=== PATIENT | male | born 1955 | race Caucasian/White ===

== ENCOUNTER 2017-03-09 13:10 | Emergency (ER) | payer OTHER ==
[~2017-03-09] VITALS: Ht 177.8 cm; Wt 64.3 kg
[~2017-03-09 13:10] MED LIST: ACLI1AER2 IN; CYCL-36 PO; FLUT50I; MORP30TA PO; NAPR-576 PO; NORC10TA2 PO; PRAV10 PO; TAMS0.4C4 PO; WALKER ROLLING
[2017-03-09 13:16] VITALS: BP 148/73; PULSE 67; RESP 18; TEMP 97.9; O2SAT 99
[2017-03-09] MEDS ORDERED: PRAV10TA PO (13:33)
[2017-03-09] MEDS ORDERED: NAPR500T PO (13:33)
[2017-03-09] MEDS ORDERED: ACLI1AER2 INH (13:33)
[2017-03-09] MEDS ORDERED: VENTAER INH (13:33)
--- NOTE | 2017-03-09 13:44 | PD ---
HPI Chief Complaint: Complaint Time Seen by Provider: 13:22 Travel History International Travel<30 days: No Contact w/Intl Traveler<30days: No Traveled to known affect area: No History of Present Illness HPI This Is a 62-year-old male who has a history of bladder surgery in July of this year with Dr. Guillermo who presents to the emergency department today with several hours of bright red blood in his urine. He says he's had no pain with urination but at the end of his stream he started to pass a large amount of bright red blood and clots. This is been constant since it started, moderate severity with no associated lightheadedness or dizziness. He denies any fevers or chills. He says for about 9 days he's been having bilateral low back pain. He has a history of back surgery as well and thought it was more likely to be musculoskeletal. He denies any vomiting. He is not On any blood thinners. He has been taking naproxen for his back. He says he was taking Urobell for the symptoms associated with the surgery and he stopped 3 weeks ago because it was very expensive. PFSH Past Medical History Arthritis: Yes Blood Disorders: No Cancer: No Cardiovascular Problems: No High Cholesterol: Yes COPD: Yes Diabetes: No Diminished Hearing: No Endocrine: No Genitourinary: Yes (BPH) Hepatitis: No Hiatal Hernia: No Immune Disorder: No Medical other: Yes (CYST ON THYROID) Musculoskeletal: Yes (ARTHRITIS) Neurologic: No Psychiatric: Yes (ANXIETY/ DEPRESSION) Reproductive: No Respiratory: Yes (COPD) Immunizations Current: Yes Thyroid Disease: No Tetanus Vaccination: < 5 Years Influenza Vaccination: No Past Surgical History Abdominal Surgery: Yes (ANDREW INGUINAL HERNIA REPAIR) AICD: No Body Medical Devices: CERVICAL HARDWARE Genitourinary Surgery: Yes (VASECTOMY, URITHERAL SX) Joint Replacement: No Neurologic Surgery: Yes (CERVICAL FUSION) Pacemaker: No Tonsillectomy: Yes Other Surgery: Yes (NECK SURGERY) Social History Alcohol Use: Yes (SOCIALLY) Tobacco Use: Yes (1PPD) Substance Use: No Allergies-Medications (Allergen,Severity, Reaction): Coded Allergies: bupropion (Unverified Allergy, Severe, AGITATION, 03/09/17) lovastatin (Unverified Allergy, Intermediate, Rash, 03/09/17) 10/21/15 DENIES ALLERGY Reported Meds & Prescriptions Reported Meds & Active Scripts Active Reported Ventolin Hfa 18 GM Inh (Albuterol Sulfate) 90 Mcg/Act Aer 1 Puff INH Q4H PRN Tudorza Pressair Inh (Aclidinium Ama Inh) 400 Mcg/Act Aerp 1 Puff INH BID Naproxen 500 Mg Tab 500 Mg PO BID Pravastatin 10 Mg Tab 10 Mg PO DAILY Review of Systems Except as stated in HPI: all other systems reviewed are Neg Physical Exam Narrative GENERAL:Well appearing, no acute distress SKIN: Focused skin assessment warm and dry. HEAD: Atraumatic. Normocephalic. EYES: Pupils equal and round. No injection or drainage. ENT: Moist mucous membranes NECK: Trachea midline. CARDIOVASCULAR: Regular rate and rhythm. No murmur appreciated. RESPIRATORY: Clear to auscultation. Breath sounds equal bilaterally. GASTROINTESTINAL: Abdomen soft, non-tender, nondistended. MUSCULOSKELETAL: Tender to palpation in the lumbar paraspinal muscles NEUROLOGICAL: Awake and alert. No obvious cranial nerve deficits. Moving all extremities PSYCHIATRIC: Appropriate mood and affect; insight and judgment normal. Data Data Last Documented VS Vital Signs Date Time Temp Pulse Resp B/P (MAP) Pulse Ox O2 Delivery O2 Flow Rate FiO2 03/09/17 13:16 97.9 67 18 148/73 (98) 99 Orders Orders Complete Blood Count With Diff (03/09/17 13:42) Comprehensive Metabolic Panel (03/09/17 13:42) Urinalysis - C+S If Indicated (03/09/17 13:42) Ct Abd/Pel W/O Iv Contrast (03/09/17 ) Labs Laboratory Tests Test 03/09/17 13:45 White Blood Count 6.2 TH/MM3 Red Blood Count 4.93 MIL/MM3 Hemoglobin 14.5 GM/DL Hematocrit 43.1 % Mean Corpuscular Volume 87.4 FL Mean Corpuscular Hemoglobin 29.4 PG Mean Corpuscular Hemoglobin Concent 33.6 % Red Cell Distribution Width 12.3 % Platelet Count 237 TH/MM3 Mean Platelet Volume 7.4 FL Neutrophils (%) (Auto) 65.3 % Lymphocytes (%) (Auto) 27.0 % Monocytes (%) (Auto) 6.0 % Eosinophils (%) (Auto) 1.0 % Basophils (%) (Auto) 0.7 % Neutrophils # (Auto) 4.0 TH/MM3 Lymphocytes # (Auto) 1.7 TH/MM3 Monocytes # (Auto) 0.4 TH/MM3 Eosinophils # (Auto) 0.1 TH/MM3 Basophils # (Auto) 0.0 TH/MM3 CBC Comment DIFF FINAL Differential Comment Urine Collection Type CLEAN CATCH Urine Color RED Urine Turbidity MARKED Urine pH 6.0 Urine Specific Harvey 1.022 Urine Protein 100 mg/dL Urine Glucose (UA) NEG mg/dL Urine Ketones TRACE mg/dL Urine Occult Blood LARGE Urine Nitrite NEG Urine Bilirubin NEG Urine Leukocyte Esterase NEG Urine RBC INNUM /hpf Urine Squamous Epithelial Cells 0-5 /hpf Urine Amorphous Sediment FEW Microscopic Urinalysis Comment CULT NOT INDICATED Urine Collection Time 1345 Blood Urea Nitrogen 13 MG/DL Creatinine 0.77 MG/DL Random Glucose 99 MG/DL Total Protein 6.4 GM/DL Albumin 3.6 GM/DL Calcium Level 8.0 MG/DL Alkaline Phosphatase 105 U/L Aspartate Amino Transf (AST/SGOT) 17 U/L Alanine Aminotransferase (ALT/SGPT) 24 U/L Total Bilirubin 0.3 MG/DL Sodium Level 140 MEQ/L Potassium Level 3.8 MEQ/L Chloride Level 106 MEQ/L Carbon Dioxide Level 28.9 MEQ/L Anion Gap 5 MEQ/L Estimat Glomerular Filtration Rate 103 ML/MIN [facility] Medical Decision Making Medical Screen Exam Complete: Yes Emergency Medical Condition: Yes Interpretation(s) Afebrile, no tachycardia, hypertensive No leukocytosis Electrolytes are reassuring Urinalysis demonstrates some blood CT abdomen and pelvis: No hydronephrosis or bladder mass Differential Diagnosis Cystitis, BPH, bladder cancer Narrative Course This is a 62-year-old male who presents to the emergency department with hematuria. He is also had some back pain that's been going on for a week and a half. Labs are reassuring. Urinalysis demonstrates blood but no infection. CT abdomen and pelvis is reassuring. I think patient is safe to follow-up with his urologist as an outpatient. Diagnosis Primary Impression: Hematuria Qualified Codes: R31.9 - Hematuria, unspecified Patient Instructions: General Instructions Additional Instructions: If you develop fever, persistent vomiting, inability to urinate, severe back pain, or inability to eat return to the emergency department. Follow-up with Dr. Guillermo as soon as possible. Med/Other Pt SpecificInfo: No Change to Meds Disposition: 01 DISCHARGE HOME Condition: Stable Highet,Geri H. MD Mar 09, 2017 13:44
[2017-03-09 13:56] LABS: BASOPHIL % 0.7 % (0.0-2.0); EOSINOPHIL # 0.1 TH/MM3 (0-0.4); HEMATOCRIT 43.1 % (39.0-51.0); HEMO FLAGS DIFF FINAL; LYMPHOCYTE # 1.7 TH/MM3 (1.0-4.8); MEAN CELL VOLUME 87.4 FL (80.0-100.0); MEAN CORPUSCULAR HEMOGLOBIN 29.4 PG (27.0-34.0); MEAN CORPUSCULAR HGB CONC 33.6 % (32.0-36.0); NEUT % 65.3 % (16.0-70.0); PLATELET COUNT 237 TH/MM3 (150-450); RED BLOOD COUNT 4.93 MIL/MM3 (4.50-5.90); RED CELL DISTRIBUTION WIDTH 12.3 % (11.6-17.2); WHITE BLOOD COUNT 6.2 TH/MM3 (4.0-11.0)
[2017-03-09 14:03] LABS: BLOOD, URINE LARGE (NEG); GLUCOSE,URINE NEG (NEG); KETONE, URINE TRACE mg/dL (NEG); NITRITE,URINE NEG (NEG)
[2017-03-09 14:04] LABS: CHLORIDE 106 MEQ/L (98-107); POTASSIUM 3.8 MEQ/L (3.5-5.1); SODIUM (NA) 140 MEQ/L (136-145)
[2017-03-09 14:05] LABS: METHOD OF COLLECTION CLEAN CATCH; URINE COLOR RED (YELLW/STRAW)
[2017-03-09 14:08] LABS: ANION GAP 5 MEQ/L (5-15); BICARBONATE 28.9 MEQ/L (21.0-32.0); BLOOD UREA NITROGEN 13 MG/DL (7-18); COMMENT (UR) CULT NOT INDICATED; CULTURE IF INDICATED CULT NOT INDICATED; RBC, URINE INNUM /hpf (0-3); SQUAMOUS EPITHELIAL CELL URINE 0-5 /hpf (0-5)
[2017-03-09 14:11] LABS: ALT (GPT) 24 U/L (12-78); AST (GOT) 17 U/L (15-37); GLOMERULAR FILTRATION RATE 103 ML/MIN (>89)
[2017-03-09 14:12] LABS: TOTAL BILIRUBIN ADULT 0.3 MG/DL (0.2-1.0)
[2017-03-09 14:14] LABS: ALKALINE PHOSPHATASE 105 U/L (45-117)
--- NOTE | 2017-03-09 14:44 | RADRPT ---
EXAM DATE/TIME: 03/09/2017 14:00 [facility] COMPARISON: No previous studies available for comparison. INDICATIONS : Blood in urine, stone. ORAL CONTRAST: No oral contrast ingested. RADIATION DOSE: 7.12 CTDIvol (mGy) MEDICAL HISTORY : Chronic obstructive pulmonary disease. SURGICAL HISTORY : Inguinal hernia repair. Tonsillectomy.Cervical fusion; deviated septum. ENCOUNTER: Initial ACUITY: 1 day PAIN SCALE: 0/10 LOCATION: abdominal. TECHNIQUE: Volumetric scanning of the abdomen and pelvis was performed. Using automated exposure control and ad justment of the mA and/or kV according to patient size, radiation dose was kept as low as reasonably achievable to obtain optimal diagnostic quality images. DICOM format image data is available electro nically for review and comparison. FINDINGS: Examination of the lung bases demonstrates no abnormality. No pleural fluid is identified. No pulmona ry nodules are present. There is a possible hypodense mass in segment 4 measuring 3 cm in diameter. M RI is recommended for further evaluation if clinically indicated. The spleen is normal in size and fr ee of focal defects. The gallbladder and pancreas are unremarkable. No intrahepatic or extrahepatic d uctal dilatation is seen. The adrenal glands and right kidney are unremarkable. There are 2 small non obstructing stones in the left kidney measuring 2 mm No hydronephrosis or mass lesions are identified . Examination of the pelvis demonstrates no evidence of free fluid or pelvic mass. No abnormally enlarg ed inguinal or retroperitoneal lymph nodes are present. The bladder is unremarkable. There is diverti culosis without evidence of diverticulitis. There is previous left inguinal hernia repair CONCLUSION: 1. No evidence of acute abdominal or pelvic process. No masses are identified. 2. Diverticulosis without evidence of diverticulitis. 3. Small nonobstructing left renal stones Garcia Hernandez MD on March 09, 2017 at 14:38 Board Certified Radiologist. This report was verified electronically.
[2017-03-09 15:07] VITALS: BP 131/75; PULSE 61; RESP 16; O2SAT 97
== END 2017-03-09 15:19 | disposition home or self-care (01) ==
LOC: PHED 13:10
DX: R31.9 Hematuria, unspecified (principal); F17.210 Nicotine dependence, cigarettes, uncomplicated
CPT/HCPCS: 74176; 80053; 81001; 85025

== ENCOUNTER 2017-07-03 10:09 | Inpatient (IN) | payer OTHER, MEDICARE ==
[~2017-07-03] VITALS: Ht 177.8 cm; Wt 65.4 kg
[2017-07-03] VITALS (13 sets, daily range): BP systolic 105–139; BP diastolic 56–75; PULSE 55–74; RESP 19–22; TEMP 97.7–98.2; O2SAT 96–100
[~2017-07-03 10:09] MED LIST changes: -ACLI1AER2 IN; +ACLI1AER2 INH; -CYCL-36 PO; -FLUT50I; -MORP30TA PO; -NAPR-576 PO; +NAPR500T2 PO; -NORC10TA2 PO; -PRAV10 PO; +PRAV10TA PO; -TAMS0.4C4 PO; +VENTAER INH; -WALKER ROLLING
[2017-07-03] MEDS ORDERED: LEXA5TAB PO (10:37)
[2017-07-03] MEDS ORDERED: UMEC1INH INH (10:37)
--- NOTE | 2017-07-03 10:56 | PD ---
HPI Chief Complaint: Cardiac Complaint Time Seen by Provider: 10:27 Travel History International Travel<30 days: No Contact w/Intl Traveler<30days: No Traveled to known affect area: No History of Present Illness HPI Patient is a 62 yo male presenting with chest pressure that began around 8:30 this morning while he was drinking coffee and smoking a cigarette. He describes his pain as pressure in the center of his chest. He also admits to some right arm and right neck discomfort. He said this morning his pain was an 8/10 and now is a 2/10. He has never had chest pain like this before. He denies shortness of breath, nausea, vomiting, abdominal pain. His last stress was in the 80s. PMH includes hyperlipidemia, COPD, pre-diabetes. The only medication he takes at home is a statin and escitalopram which he started last night for anxiety. He was given a baby aspirin and nitroglycerin which slowly relieves his symptoms. He says he is very active and has never has chest pain or shortness of breath with activity. He smokes about 1 ppd, he has smoked for about 50 years. Denies alcohol or drug use. Previous surgeries include TURP, neck and back surgery. PFSH Past Medical History Arthritis: Yes Blood Disorders: No Depression: Yes Cancer: No Cardiovascular Problems: No High Cholesterol: Yes COPD: Yes Diabetes: No Diminished Hearing: No Endocrine: No Genitourinary: Yes (BPH) Hepatitis: No Hiatal Hernia: No Immune Disorder: No Musculoskeletal: Yes (ARTHRITIS) Neurologic: No Psychiatric: Yes (ANXIETY/ DEPRESSION) Reproductive: No Respiratory: Yes (COPD ) Immunizations Current: Yes Thyroid Disease: No Ulcer: No Past Surgical History Abdominal Surgery: Yes (ANDREW INGUINAL HERNIA REPAIR) AICD: No Body Medical Devices: CERVICAL HARDWARE Genitourinary Surgery: Yes (VASECTOMY, URITHERAL SX) Joint Replacement: No Neurologic Surgery: Yes (CERVICAL FUSION) Pacemaker: No Tonsillectomy: Yes Other Surgery: Yes (NECK SURGERY) Social History Alcohol Use: Yes (SOCIALLY) Tobacco Use: Yes (1PPD) Substance Use: No Allergies-Medications (Allergen,Severity, Reaction): Coded Allergies: bupropion (Unverified Allergy, Severe, AGITATION, 07/03/17) lovastatin (Unverified Allergy, Intermediate, Rash, 07/03/17) 5/27/16 DENIES ALLERGY Reported Meds & Prescriptions Reported Meds & Active Scripts Active Reported Lexapro (Escitalopram Oxalate) 5 Mg Tab 5 Mg PO DAILY Incruse Ellipta Inh (Umeclidinium Stroud Inh) 0.0625 Mg/Act Inh 62.5 Mcg INH DAILY Ventolin Hfa 18 GM Inh (Albuterol Sulfate) 90 Mcg/Act Aer 1 Puff INH Q4H PRN Pravastatin 10 Mg Tab 20 Mg PO DAILY Physical Exam Narrative GENERAL: Well-developed well-nourished no obvious distress SKIN: Focused skin assessment warm/dry. HEAD: Atraumatic. Normocephalic. EYES: Pupils equal and round. No scleral icterus. No injection or drainage. ENT: No nasal bleeding or discharge. Mucous membranes pink and moist. NECK: Trachea midline. No JVD. CARDIOVASCULAR: Regular rate and rhythm. No murmur appreciated. 2+ bilateral equal pulses in all 4 extremities RESPIRATORY: No accessory muscle use. Clear to auscultation. Breath sounds equal bilaterally. GASTROINTESTINAL: Abdomen soft, non-tender, nondistended. Hepatic and splenic margins not palpable. MUSCULOSKELETAL: No obvious deformities. No clubbing. No cyanosis. No edema. NEUROLOGICAL: Awake and alert. No obvious cranial nerve deficits. Motor grossly within normal limits. Normal speech. PSYCHIATRIC: Appropriate mood and affect; insight and judgment normal. Data Data Last Documented VS Vital Signs Date Time Temp Pulse Resp B/P (MAP) Pulse Ox O2 Delivery O2 Flow Rate FiO2 07/03/17 11:34 55 19 139/73 (95) 100 Room Air 120/67 (84) 07/03/17 10:33 98.0 Orders Orders Electrocardiogram (07/03/17 10:52) Complete Blood Count With Diff (07/03/17 10:52) Comprehensive Metabolic Panel (07/03/17 10:52) Magnesium (Mg) (07/03/17 10:52) Prothrombin Time / Inr (Pt) (07/03/17 10:52) Act Partial Throm Time (Ptt) (07/03/17 10:52) Troponin I (07/03/17 10:52) Chest, Single Ap (07/03/17 10:52) Ecg Monitoring (07/03/17 10:52) Bilateral Bp Monitoring (07/03/17 10:52) Iv Access Insert/Monitor (07/03/17 10:52) Oximetry (07/03/17 10:52) Oxygen Administration (07/03/17 10:52) Aspirin Chew (Aspirin Chew) (07/03/17 11:00) Sodium Chloride 0.9% Flush (Ns Flush) (07/03/17 11:00) Aspirin Chew (Aspirin Chew) (07/03/17 11:45) Heparin-D5w 25,000 U/250 Ml (Heparin-D5w (07/03/17 12:30) Act Partial Throm Time (Ptt) (07/03/17 19:29) Occult Blood (Hemoccult) Stool (07/03/17 12:29) NPO (07/03/17 12:38) Cardiac Catheterization (07/03/17 ) (Hub Use Only)Inp Phy Cons/Ref (07/03/17 ) Consult Cardiology (07/03/17 ) Admit To Inpatient (07/03/17 ) Vital Signs (Adult) Q4H (07/03/17 13:03) Activity Oob With Assistance (07/03/17 13:03) Market [employer] / Telemetry .CONTINUOUS (07/03/17 13:03) Diet Npo (07/03/17 Lunch) Sodium Chloride 0.9% Flush (Ns Flush) (07/03/17 13:15) Sodium Chloride 0.9% Flush (Ns Flush) (07/03/17 21:00) Basic Metabolic Panel (Bmp) (07/04/17 06:00) Complete Blood Count With Diff (07/04/17 06:00) Electrocardiogram (07/03/17 19:03) Case Management Consult (07/03/17 13:03) Naloxone Inj (Narcan Inj) (07/03/17 13:15) Inpatient Certification (07/03/17 ) Aspirin Ec (Ecotrin Ec) (07/04/17 09:00) Nitroglycerin Sl (Nitrostat Sl) (07/03/17 13:15) Admit Order (Ed Use Only) (07/03/17 ) Labs Laboratory Tests Test 07/03/17 11:20 White Blood Count 8.3 TH/MM3 Red Blood Count 4.85 MIL/MM3 Hemoglobin 15.1 GM/DL Hematocrit 42.7 % Mean Corpuscular Volume 87.9 FL Mean Corpuscular Hemoglobin 31.1 PG Mean Corpuscular Hemoglobin Concent 35.3 % Red Cell Distribution Width 13.2 % Platelet Count 210 TH/MM3 Mean Platelet Volume 7.7 FL Neutrophils (%) (Auto) 75.3 % Lymphocytes (%) (Auto) 16.2 % Monocytes (%) (Auto) 6.5 % Eosinophils (%) (Auto) 1.2 % Basophils (%) (Auto) 0.8 % Neutrophils # (Auto) 6.2 TH/MM3 Lymphocytes # (Auto) 1.3 TH/MM3 Monocytes # (Auto) 0.5 TH/MM3 Eosinophils # (Auto) 0.1 TH/MM3 Basophils # (Auto) 0.1 TH/MM3 CBC Comment DIFF FINAL Differential Comment Prothrombin Time 10.2 SEC Prothromb Time International Ratio 1.0 RATIO Activated Partial Thromboplast Time 25.4 SEC Blood Urea Nitrogen 8 MG/DL Creatinine 0.77 MG/DL Random Glucose 121 MG/DL Total Protein 6.5 GM/DL Albumin 3.3 GM/DL Calcium Level 8.1 MG/DL Magnesium Level 2.1 MG/DL Alkaline Phosphatase 124 U/L Aspartate Amino Transf (AST/SGOT) 22 U/L Alanine Aminotransferase (ALT/SGPT) 18 U/L Total Bilirubin 0.3 MG/DL Sodium Level 140 MEQ/L Potassium Level 3.8 MEQ/L Chloride Level 108 MEQ/L Carbon Dioxide Level 24.6 MEQ/L Anion Gap 7 MEQ/L Estimat Glomerular Filtration Rate 103 ML/MIN Troponin I 0.39 NG/ML MDM Medical Decision Making Medical Screen Exam Complete: Yes Emergency Medical Condition: Yes Differential Diagnosis ACS, STEMI, acute CT, dissection unlikely. Narrative Course Patient room to the emergency department, fair story for acute coronary syndrome with an elevated troponin to 0.39. I discussed the patient with Dr. Ann regarding heparinization and he agrees, discussed with the patient and he is agreeable as well. He would like to eat that Dr. Ann requests n.p.o. status at this time. Patient was discussed with Dr. Baez for admission and she is agreeable. Dr. Ann arrives at beside and after discussion with patient will take for urgent cath. Critical Care Narrative Aggregate critical care time was 35 minutes. Time to perform other separately billable procedures was not included in the critical care time. My time did not include minutes spent treating any other patients simultaneously or on activities that did not directly contribute to the patient's treatment. The services I provided to this patient were to treat and/or prevent clinically significant deterioration that could result in: , disability, organ failure I provided critical care services requiring my management, as noted below: Chart data review, documentation time, medication orders and management, vital sign assessments/reviewing monitor data, ordering and reviewing lab tests, ordering and interpreting/reviewing x-rays and diagnostic studies, care of the patient and discussion of the patient with the admitting physicians. Diagnosis Primary Impression: Acute coronary syndrome Scripts Ticagrelor (Brilinta) 90 Mg Tab 90 MG PO BID for Blood Clot Prevention, #60 TAB Prov: Andre Danielle MD 07/04/17 Metoprolol Tartrate (Metoprolol Tartrate) 25 Mg Tab 12.5 MG PO BID for Blood Pressure Management, #30 TAB Prov: Andre Danielle MD 07/04/17 Aspirin (Tgt Aspirin) 81 Mg Chw 81 MG PO DAILY for Blood Clot Prevention, #30 EA Prov: Andre Danielle MD 07/04/17 Lisinopril (Lisinopril) 5 Mg Tab 5 MG PO DAILY for Blood Pressure Management, #30 TAB Prov: Andre Danielle MD 07/04/17 Geoffrey Shepherd MD Jul 03, 2017 10:56
[2017-07-03] MEDS ORDERED: SODIUM CHLORIDE 0.9% FLUSH 10 ML FLUSH IVF PRN (11:00)
[2017-07-03] MEDS ORDERED: ASPIRIN 81 MG CHEW TAB PO ONE (11:00)
[2017-07-03 11:35] LABS: AUTOMATED NEUTROPHIL # 6.2 TH/MM3 (1.8-7.7); BASOPHIL # 0.1 TH/MM3 (0-0.2); BASOPHIL % 0.8 % (0.0-2.0); EOSINOPHIL # 0.1 TH/MM3 (0-0.4); EOSINOPHIL % 1.2 % (0.0-4.0); HEMATOCRIT 42.7 % (39.0-51.0); HEMOGLOBIN 15.1 GM/DL (13.0-17.0); LYMPH % 16.2 % (9.0-44.0); LYMPHOCYTE # 1.3 TH/MM3 (1.0-4.8); MEAN CELL VOLUME 87.9 FL (80.0-100.0); MEAN CORPUSCULAR HEMOGLOBIN 31.1 PG (27.0-34.0); MEAN CORPUSCULAR HGB CONC 35.3 % (32.0-36.0); MEAN PLATELET VOLUME 7.7 FL (7.0-11.0); MONO % 6.5 % (0.0-8.0); MONOCYTE # 0.5 TH/MM3 (0-0.9); NEUT % 75.3 % (16.0-70.0); PLATELET COUNT 210 TH/MM3 (150-450); RED BLOOD COUNT 4.85 MIL/MM3 (4.50-5.90); RED CELL DISTRIBUTION WIDTH 13.2 % (11.6-17.2); WHITE BLOOD COUNT 8.3 TH/MM3 (4.0-11.0)
[2017-07-03 11:44] LABS: PROTHROMBIN TIME - PATIENT 10.2 SEC (9.8-11.6)
[2017-07-03] MEDS ORDERED: ASPIRIN 81 MG CHEW TAB CHEW ONE (11:45)
[2017-07-03 11:52] LABS: ALBUMIN 3.3 GM/DL (3.4-5.0); ALT (GPT) 18 U/L (12-78); AST (GOT) 22 U/L (15-37); BICARBONATE 24.6 MEQ/L (21.0-32.0); BLOOD UREA NITROGEN 8 MG/DL (7-18); CALCIUM 8.1 MG/DL (8.5-10.1); CHLORIDE 108 MEQ/L (98-107); CREATININE 0.77 MG/DL (0.60-1.30); GLOMERULAR FILTRATION RATE 103 ML/MIN (>89); GLUCOSE,RANDOM 121 MG/DL (74-106); MAGNESIUM 2.1 MG/DL (1.5-2.5); SODIUM (NA) 140 MEQ/L (136-145)
[2017-07-03 11:56] LABS: ALKALINE PHOSPHATASE 124 U/L (45-117); TOTAL BILIRUBIN ADULT 0.3 MG/DL (0.2-1.0); TOTAL PROTEIN 6.5 GM/DL (6.4-8.2); TROPONIN I 0.39 NG/ML (0.02-0.05)
[2017-07-03] MEDS ORDERED: HEPARIN-D5W 25,000 U/250 ML 250 ML IV PRN (12:30)
--- NOTE | 2017-07-03 12:42 | RADRPT ---
EXAM DATE/TIME: 07/03/2017 11:07 [facility] COMPARISON: No previous studies available for comparison. INDICATIONS : Chest pain. MEDICAL HISTORY : Chronic obstructive pulmonary disease. SURGICAL HISTORY : Inguinal hernia repair. Tonsillectomy.Cervical fusion; deviated septum. ENCOUNTER: Initial ACUITY: 1 day PAIN SCORE: 2/10 LOCATION: Bilateral chest FINDINGS: A single view of the chest demonstrates the lungs to be symmetrically aerated without evidence of mas s, infiltrate or effusion. The cardiomediastinal contours are unremarkable. Osseous structures are intact. Anterior plate lower cervical region. CONCLUSION: The lungs are clear. Valdemar Khan MD on July 03, 2017 at 12:38 Board Certified Radiologist. This report was verified electronically.
--- NOTE | 2017-07-03 12:48 | EKG ---
Date Performed: 07/03/2017 Time Performed: 10:27:16 PTAGE: 62 years EKG: SINUS BRADYCARDIA INCOMPLETE RIGHT BUNDLE BRANCH BLOCK BORDERLINE ECG NO PREVIOUS TRACING DOCTOR: Walter Arellano Interpretating Date/Time 07/03/2017 12:46:25
[2017-07-03] MEDS ORDERED: SODIUM CHLORIDE 0.9% FLUSH 10 ML FLUSH IV FLUSH PRN (13:15)
[2017-07-03] MEDS ORDERED: NITROGLYCERIN 0.4 MG SL 25 TABS/BTL SL PRN (13:15)
[2017-07-03] MEDS ORDERED: NALOXONE HCL 0.4 MG/ML AMP IV PUSH PRN (13:15)
[2017-07-03] MEDS ORDERED: MIDAZOLAM HCL 2 MG/2 ML VIAL ONE (13:48)
[2017-07-03] MEDS ORDERED: VERAPAMIL HCL 5 MG/2 ML VIAL ONE (13:48)
[2017-07-03] MEDS ORDERED: HEPARIN-NS/PF FLUSH BAG 2,000 ML IV FLUSH ONE (13:48)
[2017-07-03] MEDS ORDERED: HEPARIN SODIUM - IV 10,000 UNITS/10 ML VIAL ONE (13:48)
[2017-07-03] MEDS ORDERED: NITROGLYCERIN INJ 5 ML ONE (13:48)
[2017-07-03] MEDS ORDERED: TICAGRELOR 90 MG TAB PO ONE (14:46)
--- NOTE | 2017-07-03 15:09 | CATHPROC ---
[employer] HIS Report Study Information Study Number Admission Scheduled Start Study Start [id number] Jul 03 2017 10:09AM 07/03/2017 Jul 03 2017 1:11PM [place] [facility] Cardiac Catheterization Admit Source Facility Department Emergency department [facility] - Minister Assistant Physician and Clinical Staff Initial Avinash Katz Senior Animal Trainer Ursula Brandt,MICHELLE Recorder Janet Smalls,RT(R) Scrub Ashley Chaves,RT(R) Procedures Performed Procedure Location (Site) Vessel Name Coronary Angiograms RCA Right Coronary Drug Eluting Inflatio LAD Mid Left Coronary L Heart Cath PTCA LAD Mid Left Coronary Wire insertion Radial (right) Radial Art. Equipment Time Operator/Assistant Foreman Description Size Mfg Part Number Used/Scraped WIRE, BALANCE MIDDLEWEIGHT [id number] 14:30 [employer] 190CM Used 190CM *[id number] TRANSDUCER, TRUWAVE [id number] 13:15 DUMONT CRUZ * Used W/STOCKCOCK *[id number] *[id number] 13:15 [employer] PACK, CCL CUSTOM * Used *[id number] 13:15 [employer]gl SUPPORT, ARTERIAL ADULT 95300 *[id number] Used [id number] 14:37 MEDTRONIC BALLOON, 2.5 X 15MM EUPHORA 15MM Used *[id number] BALLOON, 2.75 X 20MM NC [id number] 14:46 [employer]TRONIC 20MM Used EUPHORA *[id number] 14:04 [employer]IC JR 4.0 DXTERITY CATHETER FR 5 Used *[id number] 14:42 [employer]IC STENT, 2.5 34MM ANA 2.5 34MM Used *[id number] 14:14 [employer]IC/AVE EBU 3.5 Z2 GUIDE CATHETER FR 6 Used *[id number] 14:39 [employer] MEDICAL 30 EVE INDEFLATOR Used *[id number] BAND, RADIAL COMPRESSION TR [id number] 14:52 [employer] MEDICAL 24CM Used SHORT 24 *[id number] 13:15 [employer] WIRE, EXCHANGE 260CM 3MMJ 260CM Used *[id number] 13:15 NAMIC MANIFOLD, 4 PORT * Used *[id number] 13:15 [employer]COMED OMNIPAQUE, 350 MG, 150ML 150ML [id number] Used [id number] 13:15 [employer],WARM AIR CCL * Used *[id number] SHEATH, FR6 TRANSRADIAL [id number] 13:15 [employer] FR 6 Used SLENDER 10CM *[id number] 14:16 [employer] PRIME WIRE, VERRATA 185CM 185CM 24082 *[id number] Used Equipment Model, Serial, Lot Number and Expiration Data Description Model Number Serial Number Lot Number Expiration Date PRIME WIRE, VERRATA 185CM [id number] 05-26-2020 STENT, 2.5 34MM ANA [id number] 12-17-2018 History: Current Medications Medication Dosage/Unit Route Frequency Last Date/Time Taken Statins (any) ASA HEPARIN History: Allergies Allergy Reaction lovastatin Rash Wellbutrin AGITATION bupropion AGITATION History: Risk Factors Family History of Hypertension Dyslipidemia Previous [place] Previous Heart Failure Premature CAD Yes Yes Yes No No Prior Valve Prior PCI Prior CABG Surgery No No No Cerebrovascular Peripheral Artery Chronic Lung On Dialysis Diabetes Disease Disease Disease No No No Yes No History: Symptoms/Diagnosis Selection Items Chest pain History: Stress Tests Stress or Imaging Studies Performed No History: Other Current Smoker Method Packs a Day Years Used Pack Years Yes Cigarettes 1 50 50 Labs Hgb (g/dl) Hct (%) RBC (MIL/MM3) WBC (l/cumm) Platelets (thousands) 11.60-17.00 35.00-51.00 4.00-5.90 4.00-11.00 150.00-450.00 15.1 42.7 4.8 8.3 210 Glucose (mg/dl) BUN (mg/dl) Creatinine (mg/dl) BUN:Creatinine (1:x) 74.00-106.00 7.00-18.00 0.50-1.30 10.00-20.00 121 8 0.7 11.4 Na (meq/l) K (meq/l) 136.00-145.00 3.50-5.10 140 3.8 INR (PTT:PT) 0.90-1.10 1 Troponin I (ng/ml) CPK-MB (ng/ML) 0.02-0.05 0.50-3.60 0.39 Not Drawn Medication Medication Total Dose (Bolus/Oral) Medication Total Dosage/Unit 1% XYLOCAINE 20 mL BRILINTA 180 mg FENTANYL 25 mcg HEPARIN 3900 units RADIAL COCKTAIL 5 mL (Bolus) VERSED 0.5 mg Medications (Bolus/Oral) Medication Time Given Dosage/Unit Administered By Reason 1% XYLOCAINE 07/03/2017 2:00:15 PM 20 mL Avinash Ann 20 mL 1% XYLOCAINE given in lab by Avinash Ann in Right Radial via Subcutaneous. VERSED 07/03/2017 2:00:42 PM 0.5 mg Ursula Brandt 0.5 mg VERSED given in lab by Ursula Brandt RN in Left Forearm via Peripheral IV. Ordered by Avinash Gonzales FENTANYL 07/03/2017 2:01:04 PM 25 mcg Ursula Brandt 25 mcg FENTANYL given in lab by Ursula Brandt RN in Left Forearm via Peripheral IV. Ordered by Avinash Hardy Ntg 200mcg Verapamil 2.5mg Heparin RADIAL COCKTAIL 07/03/2017 2:01:34 PM 5 mL (Bolus) Avinash Ann 2500U 5 mL (Bolus) RADIAL COCKTAIL given in lab by Avinash Ann in Right Radial via Radial. Using [S olution Name]. Reason: Ntg 200mcg Verapamil 2.5mg Heparin 2600U. HEPARIN 07/03/2017 2:19:30 PM 3900 units Ursula Brandt 3900 units HEPARIN given in lab by Ursula Brandt RN in Left Forearm via Peripheral IV. Ordered by Avinash Ann. BRILINTA 07/03/2017 3:01:02 PM 180 mg Ursula Brandt 180 mg BRILINTA given in lab by Ursula Brandt RN via Oral. Ordered by Avinash Ann Medication (Drip) Medication Time Given Dosage/Unit Concentration/Unit Diluent (ml) Solution IV Solutions 07/03/2017 1:33:44 PM 50 mL (IV) NaCl .9 IV Solutions given in lab by Ursula Brandt RN in Left Forearm via Peripheral IV. Pump/Drip Flow us ing NaCl .9. Ordered by Avinash Ann Initial Case Assessment Cardiovascular HR Rhythm Chest Pain 70 SR 0 Edema Present Skin color Skin None Normal Warm Dry Circulatory - Right Pulses Dorsalis Pedis Femoral Radial 1 2 3 Scale (0,1,2,3,4,d) Scale (0,1,2,3,4,d) Neurological State Oriented to time-place- Alert Moves all extremities person Respiration - General Respiration Rate SpO2 (%) (B/min) 15 98 Chronological Log Time Study Chronological Log 13:33:30 Patient arrived via Bed. 13:33:31 Patient Name, D.O.B, / Armband Verified By R.N. 13:33:32 Consent signed by the physician and the patient and verified by the Minister Assistant staff. 13:33:32 Pre-op and post- op instructions given; patient acknowledges understanding of instructions. 13:33:33 Verbal Stimulation=2 Physical Stimulation=2 Airway=2 Respiration=2 TOTAL=8. (0=absent, 1=li mited, 2=present) 13:33:35 Allens test performed on the right radial and ulnar artery. 13:33:39 Patient has been NPO for Less than 6Hrs. 13:33:40 Skin Breakdown- none per pt 13:33:41 Patient Warmer Placed on the Table. 13:33:41 Aren Prominences Protected 13:33:43 A # 20 IV was noted in the Antecubital (right). Grade = 0 13:33:43 A # 20 IV was noted in the Forearm (left). Grade = 0 IV Solutions given in lab by Ursula Brandt RN in Left Forearm via Peripheral IV. Pump/Drip F low using NaCl .9. 13:33:44 Ordered by Avinash Ann 13:33:45 History and physical on the chart or being dictated. Assessment: Initial Case, HR=70 BPM, Rhythm=SR, Chest Pain=0, Edema=None, Color=Normal, Skin = Warm, Dry Right Pulses: Lev Ped=1, Femoral=2, Radial=3 13:33:45 Neurological: State=Alert, Ox3, CHOWDHURY Respiration: Resp=15 B/min, SpO2=98 % 13:42:00 MD arrived. Vitals capture started with the following parameters, Patient=Adult, Interval=5 min, Initial Pr iqgkwf=064 mmHg, 13:42:26 Deflation Rate=5 mmHg, Cuff placed on Left Arm 13:42:44 Reference ECG taken 13:43:02 HR=67 bpm, PHSM=545/74 mmhg, SpO2=99.0 %, Resp=19 B/min 13:47:59 HR=74 bpm, IVQW=368/75 mmhg, SpO2=98.0 %, Resp=20 B/min 13:52:58 HR=66 bpm, OIBN=162/82 mmhg, SpO2=97.0 %, Resp=20 B/min 13:58:02 HR=69 bpm, ZCLD=020/77 mmhg, SpO2=97.0 %, Resp=19 B/min Time Out. Correct patient, correct procedure, correct physician, power injector not loaded with contrast with surgical 13:58:55 team present. Time Out Concurred by MD and individual staff in procedure. 14:00:10 Case Start 14:00:15 20 mL 1% XYLOCAINE given in lab by Avinahs Ann in Right Radial via Subcutaneous. 14:00:26 Pressure channel 1 zeroed. 14:00:42 0.5 mg VERSED given in lab by Ursula Brandt, MICHELLE in Left Forearm via Peripheral IV. Ordere d by Avinash Ann. 14:01:03 Access site was Right Radial Artery. 25 mcg FENTANYL given in lab by Ursula Brandt, MICHELLE in Left Forearm via Peripheral IV. Ordered by Avinash Ann 14:01:04 G. A SHEATH, FR6 TRANSRADIAL SLENDER 10CM FR 6 was advanced into the Radial (right) using the Perc utaneous 14:01:15 technique. 5 mL (Bolus) RADIAL COCKTAIL given in lab by Avinash Ann in Right Radial via Radial. Us ing [Solution Name]. 14:01:34 Reason: Ntg 200mcg Verapamil 2.5mg Heparin 2600U. 14:03:01 HR=72 bpm, MQHG=203/62 mmhg, SpO2=95.0 %, Resp=23 B/min A JR 4.0 DXTERITY CATHETER FR 5 was advanced over a wire. OMNIPAQUE, 350 MG, 150ML 150ML was us ed for 14:03:18 injections. Recorded Pressure: LV, HR=70, Condition=Condition 1 14:05:32 (Left Ventricle) LV 108/3/12 Recorded Pressure: LV, Ao, HR=68, Condition=Condition 1 14:05:44 (Left Ventricle) LV 111/3/12, (Aorta) Ao 99/53/72 Recorded Pressure: Ao, HR=68, Condition=Condition 1 14:06:11 (Aorta) Ao 97/54/74 14:06:59 The RCA was injected and visualized at various angles. OMNIPAQUE, 350 MG, 150ML 150ML used . 14:08:00 HR=69 bpm, PAGX=401/62 mmhg, SpO2=91.0 %, Resp=19 B/min After removing the current catheter a JL 3.5 INFINITI CATHETER FR 5 was advanced over a WIRE, E XCHANGE 260CM 14:08:38 3MMJ 260CM. 14:12:57 HR=65 bpm, LQHX=375/59 mmhg, SpO2=91.0 %, Resp=19 B/min 14:14:32 Catheter was removed A EBU 3.5 Z2 GUIDE CATHETER FR 6 was advanced over a wire. OMNIPAQUE, 350 MG, 150ML 150ML was u sed for 14:17:00 injections. 14:18:00 HR=63 bpm, YPAB=247/68 mmhg, SpO2=95.0 %, Resp=16 B/min 14:19:27 Pressure channel 1 zeroed. 3900 units HEPARIN given in lab by Ursula Brandt, MICHELLE in Left Forearm via Peripheral IV. Order ed by Avinash Ann 14:19:30 G. 14:22:58 A PRIME WIRE, VERRATA 185CM 185CM was inserted via Radial (right). 14:22:59 HR=64 bpm, AWXV=191/61 mmhg, SpO2=92.0 %, Resp=17 B/min 14:27:55 Flow Wire was was placed in the LAD Mid. The FFR measures ~FFR~ percent. The IFR measures 0 .89 Percent. 14:27:58 HR=67 bpm, IJER=490/65 mmhg, SpO2=94 %, Resp=16 B/min 14:29:36 Flow Wire was was placed in the LAD Mid. The FFR measures ~FFR~ percent. The IFR measures 0 .88 Percent. 14:30:12 Activated Clotting Time Drawn 14:32:31 A WIRE, BALANCE MIDDLEWEIGHT 190CM 190CM was inserted via Radial (right). 14:32:59 HR=65 bpm, BFSL=233/68 mmhg, SpO2=95.0 %, Resp=16 B/min 14:36:22 ACT (Normal Range 90-180) = 307 14:36:35 Flow Wire was was placed in the LAD Mid. The FFR measures ~FFR~ percent. The IFR measures 0 .89 Percent. 14:37:05 The PRIME WIRE, VERRATA 185CM 185CM was removed. 14:38:00 HR=65 bpm, KKUT=470/60 mmhg, SpO2=94 %, Resp=17 B/min A BALLOON, 2.5 X 15MM EUPHORA 15MM was inserted over WIRE, BALANCE MIDDLEWEIGHT 190CM 190CM via the 14:38:24 Radial (right). A BALLOON, 2.5 X 15MM EUPHORA 15MM over a PRIME WIRE, VERRATA 185CM 185CM in the LAD Mid was in flated 14:38:36 using a 30 EVE INDEFLATOR at 8 eve for 16 sec. 14:40:00 Balloon Removed. 14:42:59 HR=67 bpm, EUQT=727/64 mmhg, SpO2=93.0 %, Resp=18 B/min A STENT, 2.5 34MM ANA 2.5 34MM was advanced through a EBU 3.5 Z2 GUIDE CATHETER FR 6 over a WI RE, 14:43:02 BALANCE MIDDLEWEIGHT 190CM 190CM. A STENT, 2.5 34MM ANA 2.5 34MM was deployed using a 30 EVE INDEFLATOR at 14 atmospheres for 30 seconds in 14:43:37 the LAD Mid. 14:44:30 Delivery device removed A BALLOON, 2.75 X 20MM NC EUPHORA 20MM was inserted over WIRE, BALANCE MIDDLEWEIGHT 190CM 190CM via 14:46:52 the Radial (right). A BALLOON, 2.75 X 20MM NC EUPHORA 20MM over a WIRE, BALANCE MIDDLEWEIGHT 190CM 190CM in the LAD Mid 14:47:19 was inflated using a 30 EVE INDEFLATOR at 8 eve for 20 sec. 14:48:00 HR=64 bpm, WUOD=529/68 mmhg, SpO2=93 %, Resp=17 B/min A BALLOON, 2.75 X 20MM NC EUPHORA 20MM over a WIRE, BALANCE MIDDLEWEIGHT 190CM 190CM in the LAD Mid 14:48:24 was inflated using a 30 EVE INDEFLATOR at 16 eve for 22 sec. 14:48:52 Balloon Removed. 14:51:12 Wire removed 14:51:54 A WIRE, EXCHANGE 260CM 3MMJ 260CM was inserted via Radial (right). 14:52:28 Catheter was removed 14:52:29 Wire removed 14:52:59 HR=64 bpm, SKQL=189/75 mmhg, SpO2=97.0 %, Resp=16 B/min 14:54:03 Case End Radial Compression Device Used. 13 mLs of air placed in BAND, RADIAL COMPRESSION TR SHORT 24 24 CM. Affected 14:54:43 hand 97 % O2 saturation. 14:54:54 No case complications noted. 14:54:56 Cine recording checked. 14:54:57 Bedside Report will be given. 14:54:59 Implantable Device card placed in patient's chart. 14:55:00 Report called to floor. 14:55:02 Contrast Scanned 14:55:05 A Left Heart Cath was performed. 14:58:04 HR=64 bpm, JAEL=591/72 mmhg, SpO2=97.0 %, Resp=14 B/min 15:01:02 180 mg BRILINTA given in lab by Ursula Brandt RN via Oral. Ordered by Avinash Ann 15:03:01 HR=64 bpm, PUVO=075/74 mmhg, SpO2=96.0 %, Resp=17 B/min 15:05:00 Patient moved to stretcher 15:05:35 Vitals capture stopped. End Study - Contrast Media Used In Study Contrast Total Opened (mL) Total Used (mL) Total Wasted (mL) Omnipaque 110 110 0 End Study - Maximum Contrast Load Max Contrast Load (mL) 464.3 End Study - Radiation Exposure Fluoro Time (minutes) 9.9 End Study - Patient Disposition Complications Transferred To Interventional Outcome No Telemetry Bed successful
[2017-07-03] MEDS ORDERED: ONDANSETRON HCL 4 MG/2 ML VIAL IVP PRN (15:30)
[2017-07-03] MEDS ORDERED: MORPHINE SULFATE 4 MG/ML INJ IV PUSH PRN (15:30)
[2017-07-03] MEDS ORDERED: MISC INFORMATION XX ONE (15:30)
[2017-07-03] MEDS ORDERED: oxyCODONE/ACETAMINOPHEN 10 MG/325 MG TAB PO PRN (15:30)
[2017-07-03] MEDS ORDERED: ACETAMINOPHEN 325 MG TAB PO PRN (15:30)
[2017-07-03] MEDS ORDERED: oxyCODONE/ACETAMINOPHEN 5 MG/325 MG TAB PO PRN (15:30)
[2017-07-03] MEDS ORDERED: IOHEXOL 350 MG/ML 100 ML BTL (for Cath Lab) OTHER ONE (15:33)
[2017-07-03] MEDS ORDERED: IOHEXOL 350 MG/ML 50 ML BTL (for Cath Lab) OTHER ONE (15:33)
--- NOTE | 2017-07-03 17:34 | MA ---
cc: AVINASH KING DO DATE: 07/03/2017 PROCEDURE Left heart catheterization, coronary angiogram, ahsan drug-eluting stent (2.5 x 34) to the LAD, moderate sedation 55 minutes. PREPROCEDURE DIAGNOSIS N-STEMI, chest pain. POSTPROCEDURE DIAGNOSIS N-STEMI, coronary artery disease, status post ahsan drug-eluting stent (2.5 x 34) to the LAD. MEDICATIONS Versus 0.5 milligrams. Fentanyl 25 micrograms. Heparin 6500 units. Nitro 200 micrograms. Verapamil 2.5 milligrams. Brilinta 180 milligrams. CONTRAST USED 110 cc. Fluoroscopy 9.9 minutes Moderate sedation 55 minutes ESTIMATED BLOOD LOSS 10 cc PROCEDURAL SUMMARY Saran Romero is a pleasant 62-year-old male who presented to [facility] emergency room on July 03, 2017 due to chest pain. He was found to have an elevated troponin and because of his story being high likelihood for coronary insufficiency, he was recommended cardiac catheterization. The risks, benefits and alternatives were explained to him and he consented as such. He was brought to the lab and prepped in the usual sterile fashion. The right radial artery was accessed using modified Seldinger technique and placement of a 5/6 [place] slender sheath. This was easily aspirated and flushed. A JR4 was advanced over a J-wire to the ascending aorta and across the aortic valve for measurement of left ventricular pressure. This was pulled back across the aortic valve showing no significant gradient of aortic stenosis. JR-4 was used for selective angiography of the right coronary artery system. This was exchanged out for a JL-3.5 which was used for selective angiography of the left coronary artery system. Please see notes below for intervention. FINDINGS Left main: Normal size vessel with adequate reflux. There is 10% diffuse disease. It trifurcates into an LAD, circumflex and ramus. LAD: Normal-size vessel with 20% disease in the proximal portion. After the first diagonal there is a long tubular lesion which appears 60-70%. Distally the LAD shows no significant disease. It gives off two diagonals which overall have no significant disease. Ramus: Small vessel around 1.5 mm which covers a very small area of myocardium with a 95% lesion in the proximal portion. Left circumflex: Moderate size vessel which gives off an AV groove circ and one large obtuse marginal which overall has some mild tortuosity but no significant disease. RCA: Normal-size vessel with a 20% lesion in the proximal portion but no significant disease in the mid or distal portion. LVEDP 12. INTERVENTION Mr. Romero does have a significant lesion in the ramus but overall this is an extremely small vessel may be 1.5 millimeters and it was felt like this should be treated medically. He does have significant long tubular lesion in the LAD which, I believe, needed to be proved to be ischemic. An EBU guide was advanced and engaged into the left main. The patient was given heparin as an anticoagulant. A Verrata wire was then advanced into the distal LAD. IFR measurements were 0.88 showing significant stenosis. Because of the long tubular nature I felt that I should attempt to see if only part of this was more ischemic than other parts. A BMW wire was then advanced into the distal LAD. A pullback was done of the IFR wire which showed ischemic until almost the proximal portion of the LAD. A compliant balloon (2.5 x 15)) was then advanced and inflated over the lesion multiple times. An ahsan drug-eluting stent (2.5 x 34) was then placed over the long tubular lesion and inflated. This was postdilated with a noncompliant balloon (2.5 x 20). Final angiogram shows a well opposed stent with no perforations or dissections and ROSE MARY-III flow down both diagonals that were covered. Wire was removed. Guide was removed. The patient was given 180 mg of Brilinta. Radial band was placed over the arteriotomy site for hemostasis. The patient left the research laboratory manager cardiovascularly stable. IMPRESSION 1. N-STEMI. 2. Coronary artery disease status post ahsan drug-eluting stent (2.5 x 34) to the mid-LAD. 3. Tobacco abuse. RECOMMENDATIONS 1. Mr. Romero underwent PCI of his LAD and he will be placed on aspirin and Brilinta therapy. 2. He will continue on a statin therapy but we will talk to him about trying to increase this as he is on pravastatin 20. 3. Will talk about adding beta salma and BRENDA inhibitor therapy. 4. Will check a 2-D echo to look at his overall left ventricular function, cardiac structure and possible vulvopathies. 5. I spoke to him for greater than three minutes about tobacco cessation. 6. He will most likely be in the hospital another 24 to 48 hours, as he did have a positive troponin. Thank you for allowing me to see Saran Nick. If there are any questions, please do not hesitate to call. Avinash King DO VGCaesar/ALISHA /3:09 PM /5:04 PM
--- NOTE | 2017-07-03 17:34 | MB ---
cc: AVINASH KING DO DATE OF CONSULTATION: 07/03/2017 REASON FOR CONSULTATION: N-STEMI. HISTORY OF PRESENT ILLNESS: Saran Romero is a pleasant 62-year-old male who presented to [facility] emergency room on July 03, 2017 due to chest pain. Apparently this morning around 08:30 he was drinking coffee and smoking a cigarette and started noticing pressure in the center of his chest. He admits that some of it went into his right shoulder and up his right neck. At the time the pain was 8/10 and now he appears to be chest pain free. He has never had chest pain like this before. He denies shortness of breath, nausea and vomiting or abdominal pain with this. The pain went away with some nitroglycerin. PAST MEDICAL HISTORY: 1. Diet controlled diabetes mellitus. 2. COPD. 3. Hyperlipidemia. 4. Anxiety. 5. Depression. PAST SURGICAL HISTORY: 1. Nasal surgery for deviated septum. 2. Hernia repair. 3. Vasectomy. 4. Excision of a ganglion cyst. 5. C-spine fusion with plate. ALLERGIES: BUPROPION LOVASTATIN (caused a rash but still has a rash after stopping the medication for a number of years, so no longer believed to be an allergy). MEDICATIONS: 1. Ellipta 62.5 milligrams inhaled daily. 2. Ventolin one puff every 4 hours as needed for shortness of breath. 3. Pravastatin 20 milligrams daily. 4. Lexapro 5 milligrams daily. FAMILY HISTORY: Denies premature coronary artery disease or sudden cardiac within the family. SOCIAL HISTORY The patient smokes around a pack a day for 44 years. He drinks alcohol once or twice a week. Denies drug abuse. REVIEW OF SYSTEMS 14-systems were reviewed including osteopathic pertinent positives and negatives above otherwise negative. PHYSICAL EXAMINATION Vital signs: Temperature 98.0, heart rate 55, blood pressure 139/73, respirations 19, pulse ox 100%. In general, the patient appears well, in no acute distress, alert awake and oriented x3. Extraocular muscles intact. Mucous membranes moist. Neck: Supple. No JVD at 45 degrees. No carotid bruits heard bilaterally. Carotid upstroke is brisk in nature. Heart: Regular rate and rhythm. Positive first and second heart sounds with no murmurs, gallops or rubs. Lungs: Clear to auscultation bilaterally. No wheezes, rales or rhonchi. Abdomen: Soft, nontender, nondistended, no organomegaly noted. Extremities: Show no clubbing, cyanosis or edema. Femoral and distal pulses intact bilaterally. Neurologically: No focal deficits. Skin: Warm, dry and intact. Osteopathically, no kyphoscoliosis, lordosis or paraspinal tender points. LABORATORY WORK: Hemoglobin 15.1, hematocrit 42.7, platelet count 210. Potassium 3.8, BUN 8, creatinine 0.77, troponin 0.39. Electrocardiogram (July 03, 2017 at 10:27) sinus bradycardia, incomplete right bundle branch block. IMPRESSION 1. Chest pain concerning for coronary insufficiency. 1. N-STEMI. 2. Tobacco abuse. 3. History of diabetes mellitus which apparently is diet-controlled. 4. COPD 5. Hyperlipidemia 6. Anxiety 7. Depression. RECOMMENDATIONS 1. Mr. Romero presented with chest pain concerning for coronary insufficiency and elevated troponin. Because of this I feel that he should undergo cardiac catheterization. 2. Risks, benefits and alternatives were explained to him and he consented as such. 3. He will be left n.p.o. and taken to the lab later today. 4. Will check a 2-D echo to look at his overall left ventricular function, cardiac structure and possible valvopathies. 5. Further recommendations will be made based on coronary visualization. Thank you for allowing me to see Saran Romero. If there are any questions please do not hesitate to call. Avinash King DO VGP/ALISHA /3:19 PM /5:18 PM
--- NOTE | 2017-07-03 20:51 | HHI.HP ---
[facility] Chon Gonzalez MD Admission Diagnosis Acute Coronary Syndrome, Elevated [place]. Diagnoses: Travel History International Travel<30 Days: No Contact w/Intl Traveler <30 Da: No Traveled to Known Affected Are: No History of Present Illness hx from patient, and review of med records chest pain while sitting down this am was just drinking coffee pain is pressure like went ot right arm and right neck no nausea/ no vomiting/ no sweating called 911 EMS gave asa and nitro and pain lessened with that was given more asa and ntg in er and pain got better was eval by cardio denies other symptoms on ROS but in Dec had night sweats, URI, had to go through 2- 3 sets of towels for couple of nights, lasted about 1.5 weeks and - day started was given antibiotics and prednisone and got improved and mucinex Review of Systems Except as stated in HPI: all other systems reviewed are Neg Past Family Social History Past Medical History pre diabetic in 1980s- had MVP COPD kidney stones thyroid nodule - not on meds, just serial US by mining technician BPH Past Surgical History july 2016- sx for BPH back sx 2016 neck sx 2008 hernia sx left hand ganglion cyst deviated septum sx Allergies: Coded Allergies: bupropion (Unverified Allergy, Severe, AGITATION, 07/03/17) lovastatin (Unverified Allergy, Intermediate, Rash, 07/03/17) 10/21/15 DENIES ALLERGY Family History father- etoh abuse- heart problems, cabg, cirrhosis, dm, chf Social History 1 ppd no etoh abuse no drugs still driving Physical Exam Vital Signs Vital Signs Date Time Temp Pulse Resp B/P (MAP) Pulse Ox O2 Delivery O2 Flow Rate FiO2 07/03/17 18:00 74 07/03/17 17:00 68 07/03/17 16:00 60 07/03/17 15:30 64 07/03/17 15:15 98.0 66 20 125/75 (92) 99 07/03/17 13:17 07/03/17 11:34 55 19 139/73 (95) 100 Room Air 120/67 (84) 07/03/17 11:30 Room Air 07/03/17 11:30 98 Room Air 07/03/17 10:33 98.0 07/03/17 10:28 64 21 97 07/03/17 10:24 64 22 111/56 (74) 97 Physical Exam GENERAL: This is a well-nourished, well-developed patient, in no apparent distress. SKIN: No rashes, ecchymoses or lesions. Cool and dry. HEAD: Atraumatic. Normocephalic. No temporal or scalp tenderness. EYES: No scleral icterus. No injection or drainage. ENT: Nose without bleeding, purulent drainage or septal hematoma. Airway patent. NECK: Trachea midline. No JVD or lymphadenopathy. Supple, nontender, no meningeal signs. CARDIOVASCULAR: Regular rate and rhythm without murmurs, gallops, or rubs. RESPIRATORY: Clear to auscultation. Breath sounds equal bilaterally. No wheezes , rales, or rhonchi. GASTROINTESTINAL: Abdomen soft, non-tender, nondistended. No guarding EXTREMITIES: no calf asymmetry or edema, no effusions NEUROLOGICAL: Awake and alert. Motor and sensory grossly within normal limits. Normal speech. Laboratory Laboratory Tests Test 07/03/17 11:20 White Blood Count 8.3 Red Blood Count 4.85 Hemoglobin 15.1 Hematocrit 42.7 Mean Corpuscular Volume 87.9 Mean Corpuscular Hemoglobin 31.1 Mean Corpuscular Hemoglobin Concent 35.3 Red Cell Distribution Width 13.2 Platelet Count 210 Mean Platelet Volume 7.7 Neutrophils (%) (Auto) 75.3 Lymphocytes (%) (Auto) 16.2 Monocytes (%) (Auto) 6.5 Eosinophils (%) (Auto) 1.2 Basophils (%) (Auto) 0.8 Neutrophils # (Auto) 6.2 Lymphocytes # (Auto) 1.3 Monocytes # (Auto) 0.5 Eosinophils # (Auto) 0.1 Basophils # (Auto) 0.1 CBC Comment DIFF FINAL Differential Comment Prothrombin Time 10.2 Prothromb Time International Ratio 1.0 Activated Partial Thromboplast Time 25.4 Blood Urea Nitrogen 8 Creatinine 0.77 Random Glucose 121 Total Protein 6.5 Albumin 3.3 Calcium Level 8.1 Magnesium Level 2.1 Alkaline Phosphatase 124 Aspartate Amino Transf (AST/SGOT) 22 Alanine Aminotransferase (ALT/SGPT) 18 Total Bilirubin 0.3 Sodium Level 140 Potassium Level 3.8 Chloride Level 108 Carbon Dioxide Level 24.6 Anion Gap 7 Estimat Glomerular Filtration Rate 103 Troponin I 0.39 Result Diagram: 07/03/170 07/03/17 1120 Caprini VTE Risk Assessment Caprini VTE Risk Assessment: Mod/High Risk (score >= 2) Caprini Risk Assessment Model Point Value = 1 Point Value = 2 Point Value = 3 Point Value = 5 Age 41-60 Minor surgery BMI > 25 kg/m2 Swollen legs Varicose veins or History of unexplained or recurrent spontaneous Oral contraceptives or hormone replacement Sepsis (< 1 month) Serious lung disease, including pneumonia (< 1 month) Abnormal pulmonary function Acute myocardial infarction Congestive heart failure (< 1 month) History of inflammatory bowel disease Medical patient at bed rest Age 61-74 Arthroscopic surgery Major open surgery (> 45 min) Laparoscopic surgery (> 45 min) Malignancy Confined to bed (> 72 hours) Immobilizing plaster cast Central venous access Age >= 75 History of VTE Family history of VTE Factor V Leiden Prothrombin [id number] Lupus anticoagulant Anticardiolipin antibodies Elevated serum homocysteine Heparin-induced thrombocytopenia Other congenital or acquired thrombophilia Stroke (< 1 month) Elective arthroplasty Hip, pelvis, or leg fracture Acute spinal cord injury (< 1 month) Prophylaxis Regimen Total Risk Factor Score Risk Level Prophylaxis Regimen 0-1 Low Early ambulation 2 Moderate Order ONE of the following: *Sequential Compression Device (SCD) *Heparin 5000 units SQ BID 3-4 Higher Order ONE of the following medications: *Heparin 5000 units SQ TID *Enoxaparin/Lovenox 40 mg SQ daily (WT < 150 kg, CrCl > 30 mL/min) *Enoxaparin/Lovenox 30 mg SQ daily (WT < 150 kg, CrCl > 10-29 mL/min) *Enoxaparin/Lovenox 30 mg SQ BID (WT < 150 kg, CrCl > 30 mL/min) AND/OR *Sequential Compression Device (SCD) 5 or more Highest Order ONE of the following medications: *Heparin 5000 units SQ TID (Preferred with Epidurals) *Enoxaparin/Lovenox 40 mg SQ daily (WT < 150 kg, CrCl > 30 mL/min) *Enoxaparin/Lovenox 30 mg SQ daily (WT < 150 kg, CrCl > 10-29 mL/min) *Enoxaparin/Lovenox 30 mg SQ BID (WT < 150 kg, CrCl > 30 mL/min) AND *Sequential Compression Device (SCD) Assessment and Plan Assessment and Plan Impression: Non-ST elevation [place] pre diabetic in 1980s- had MVP COPD kidney stones thyroid nodule - not on meds, just serial US by mining technician BPH Plan: Patient was started on a heparin drip in ER. Aspirin full dose. Nitroglycerin sublingual when necessary. Cardiology was consulted. Patient went to coronary angiogram straight from ER by Dr. Ann. Post catheter report reviewed. Drug-eluting stents to the LAD. Echocardiogram in a.m. Medications started by cardiology reviewed. BRENDA inhibitor, beta blockers, statins, ticagrelor We'll monitor patient's on these new medications. DVT prophylaxis with SCD and ambulation. Discussed Condition With patient, ER physician Physician Certification 2 Midnight Certification Type: Admission for Inpatient Services Order for Inpatient Services The services are ordered in accordance with Medicare regulations or non- Medicare payer requirements, as applicable. In the case of services not specified as inpatient-only, they are appropriately provided as inpatient services in accordance with the 2-midnight benchmark. Estimated LOS (days): 2 days is the estimated time the patient will need to remain in the hospital, assuming treatment plan goals are met and no additional complications. Post-Hospital Plan: Home Crystal Berry MD Jul 03, 2017 20:51
[2017-07-03] MEDS ORDERED: ATORVASTATIN 40 MG TAB PO SCH (21:00)
[2017-07-03] MEDS: METOPROLOL TARTRATE 25 MG TAB PO SCH (21:06)
[2017-07-03] MEDS: SODIUM CHLORIDE 0.9% FLUSH 10 ML FLUSH IV FLUSH SCH (21:06)
[2017-07-03] MEDS: TICAGRELOR 90 MG TAB PO SCH (21:06)
[2017-07-04] VITALS (19 sets, daily range): BP systolic 103–124; BP diastolic 60–74; PULSE 52–64; RESP 18–20; TEMP 97.7–98; O2SAT 96–98
[2017-07-04 05:51] LABS: AUTOMATED NEUTROPHIL # 6.4 TH/MM3 (1.8-7.7); BASOPHIL # 0.1 TH/MM3 (0-0.2); BASOPHIL % 0.8 % (0.0-2.0); EOSINOPHIL # 0.1 TH/MM3 (0-0.4); EOSINOPHIL % 1.3 % (0.0-4.0); HEMATOCRIT 44.1 % (39.0-51.0); HEMOGLOBIN 15.3 GM/DL (13.0-17.0); LYMPH % 19.9 % (9.0-44.0); LYMPHOCYTE # 1.8 TH/MM3 (1.0-4.8); MEAN CELL VOLUME 87.3 FL (80.0-100.0); MEAN CORPUSCULAR HEMOGLOBIN 30.2 PG (27.0-34.0); MEAN CORPUSCULAR HGB CONC 34.6 % (32.0-36.0); MEAN PLATELET VOLUME 7.3 FL (7.0-11.0); MONOCYTE # 0.7 TH/MM3 (0-0.9); PLATELET COUNT 226 TH/MM3 (150-450); RED BLOOD COUNT 5.05 MIL/MM3 (4.50-5.90); RED CELL DISTRIBUTION WIDTH 13.3 % (11.6-17.2); WHITE BLOOD COUNT 9.2 TH/MM3 (4.0-11.0)
[2017-07-04 06:01] LABS: BICARBONATE 26.2 MEQ/L (21.0-32.0); CALCIUM 8.8 MG/DL (8.5-10.1); CREATININE 0.87 MG/DL (0.60-1.30)
[2017-07-04] MEDS ORDERED: LISINOPRIL 5 MG TAB PO SCH (09:00)
[2017-07-04] MEDS ORDERED: ASPIRIN 81 MG CHEW TAB PO SCH (09:00)
[2017-07-04] MEDS ORDERED: ASPIRIN EC 325 MG TABEC PO SCH (09:00)
[2017-07-04] MEDS: METOPROLOL TARTRATE 25 MG TAB PO SCH (09:53)
[2017-07-04] MEDS: SODIUM CHLORIDE 0.9% FLUSH 10 ML FLUSH IV FLUSH SCH (09:54)
[2017-07-04] MEDS: TICAGRELOR 90 MG TAB PO SCH (09:54)
--- NOTE | 2017-07-04 11:00 | ECHRPT ---
Indication: NSTEMI CONCLUSIONS The left ventricular systolic function is hyperdynamic with an estimated ejection fraction in the ra nge of 65- 70%. Normal left ventricular size. Wall thickness is normal. No regional wall motion abnormalities are present. BP: / HR: Rhythm: Sinus MEASUREMENTS (Male / Female) Normal Values Technical Quality:Excellent 2D ECHO LV Diastolic Diameter PLAX 4.4 cm 4.2 - 5.9 / 3.9 - 5.3 cm LV Systolic Diameter PLAX 2.7 cm IVS Diastolic Thickness 1.0 cm 0.6 - 1.0 / 0.6 - 0.9 cm LVPW Diastolic Thickness 1.0 cm 0.6 - 1.0 / 0.6 - 0.9 cm LV Relative Wall Thickness 0.4 RV Internal Dim ED PLAX 2.9 cm LVOT Diameter 2.2 cm LA Systolic Diameter LX 3.2 cm 3.0 - 4.0 / 2.7 - 3.8 cm LV Ejection Fraction MOD 4C 72.3 % LV Ejection Fraction 4C AL 72.8 % M-MODE Aortic Root Diameter MM 2.7 cm LA Systolic Diameter MM 2.9 cm LA Ao Ratio MM 1.1 AV Cusp Separation MM 2.3 cm DOPPLER AV Peak Velocity 97.7 cm/s AV Peak Gradient 3.8 mmHg LVOT Peak Velocity 93.3 cm/s LVOT Peak Gradient 3.5 mmHg AV Area Cont Eq pk 3.6 cm MV Area PHT 2.9 cm Mitral E Point Velocity 70.1 cm/s Mitral A Point Velocity 54.3 cm/s Mitral E to A Ratio 1.3 LV E' Lateral Velocity 6.9 cm/s Mitral E to LV E' Lateral Ratio 10.1 LV E' Septal Velocity 6.0 cm/s Mitral E to LV E' Septal Ratio 11.6 PV Peak Velocity 84.2 cm/s PV Peak Gradient 2.8 mmHg FINDINGS LEFT VENTRICLE The left ventricular systolic function is hyperdynamic with an estimated ejection fraction in the ra nge of 65- 70%. Normal left ventricular size. Wall thickness is normal. No regional wall motion abnormalities are present. RIGHT VENTRICLE Normal right ventricular size and systolic function. LEFT ATRIUM The left atrial size is normal. RIGHT ATRIUM The right atrial size is normal. ATRIAL SEPTUM Normal atrial septal thickness without atrial level shunting by limited color doppler interrogation. AORTA The aortic root and proximal ascending aorta are normal in size on limited imaging. MITRAL VALVE Structurally normal mitral valve. No mitral valve stenosis or regurgitation. AORTIC VALVE Trileaflet aortic valve. No aortic valve stenosis or regurgitation. TRICUSPID VALVE Structurally normal tricuspid valve. No tricuspid valve stenosis or regurgitation. PULMONARY VALVE The pulmonary valve is not well visualized. VESSELS The inferior vena cava is normal in size. PERICARDIUM No pericardial effusion. Walter Arellano MD, FACC (Electronically Signed) Final Date:04 July 2017 10:58
--- NOTE | 2017-07-04 11:57 | PD.CARD.PN ---
Subjective Subjective Remarks No events overnight No chest pain/SOB Objective Medications Current Medications Medications (Trade) Dose Ordered Sig/Tangela Route Start Time Stop Time Status Last Admin (NS Flush) 2 ml UNSCH PRN IV FLUSH 07/03/17 13:15 (NS Flush) 2 ml BID IV FLUSH 07/03/17 21:00 07/04/17 09:54 (Narcan Inj) 0.4 mg UNSCH PRN IV PUSH 07/03/17 13:15 (Nitrostat Sl) 0.4 mg Q5M PRN SL 07/03/17 13:15 (Tylenol) 325 mg Q4H PRN PO 07/03/17 15:30 (Percocet 5-325 Mg) 1 tab Q4H PRN PO 07/03/17 15:30 (Percocet 10-325 Mg) 1 tab Q4H PRN PO 07/03/17 15:30 07/04/17 09:54 (Morphine Inj) 2 mg Q30M PRN IV PUSH 07/03/17 15:30 (Zofran Inj) 4 mg Q6H PRN IVP 07/03/17 15:30 (Aspirin Chew) 81 mg DAILY PO 07/04/17 09:00 07/04/17 09:53 (Brilinta) 90 mg BID PO 07/03/17 21:00 07/04/17 09:54 (Lopressor) 12.5 mg BID PO 07/03/17 21:00 07/04/17 09:53 (Prinivil) 5 mg DAILY PO 07/04/17 09:00 07/04/17 09:53 (Lipitor) 40 mg HS PO 07/03/17 21:00 07/03/17 21:06 Vital Signs / I&O Vital Signs Date Time Temp Pulse Resp B/P (MAP) Pulse Ox O2 Delivery O2 Flow Rate FiO2 07/04/17 06:00 58 07/04/17 05:00 52 07/04/17 04:00 56 07/04/17 03:00 53 07/04/17 03:00 97.7 55 20 103/60 (74) 98 07/04/17 02:00 64 07/04/17 01:00 56 07/04/17 00:00 58 07/03/17 23:00 97.7 62 22 105/66 (79) 96 07/03/17 23:00 65 07/03/17 22:00 60 07/03/17 21:00 66 07/03/17 20:00 68 07/03/17 19:00 98.2 65 22 136/72 (93) 96 07/03/17 19:00 64 07/03/17 18:00 74 07/03/17 17:00 68 07/03/17 16:00 60 07/03/17 15:30 64 07/03/17 15:15 98.0 66 20 125/75 (92) 99 07/03/17 13:17 I/O 07/03/17 07/03/17 07/03/17 07/04/17 07/04/17 07/04/17 07:00 15:00 23:00 07:00 15:00 23:00 Intake Total 740 ml 240 ml Output Total 350 ml 1425 ml Balance 390 ml -1185 ml Intake Oral 240 ml 240 ml IV Total 500 ml Output Urine Total 350 ml 1425 ml Physical Exam GENERAL: NAD, AAOx3 SKIN: Warm and dry. HEAD: Atraumatic. Normocephalic. EYES: Pupils equal and round. No scleral icterus. No injection or drainage. ENT: No nasal bleeding or discharge. Mucous membranes pink and moist. NECK: Trachea midline. No JVD. CARDIOVASCULAR: Regular rate and rhythm. RESPIRATORY: No accessory muscle use. Clear to auscultation. Breath sounds equal bilaterally. GASTROINTESTINAL: Abdomen soft, non-tender, nondistended. Hepatic and splenic margins not palpable. MUSCULOSKELETAL: Extremities without clubbing, cyanosis, or edema. No obvious deformities. Right radial no hematoma, neurovascularly intact distally NEUROLOGICAL: Awake and alert. No obvious cranial nerve deficits. Motor grossly within normal limits. Five out of 5 muscle strength in the arms and legs. Normal speech. PSYCHIATRIC: Appropriate mood and affect; insight and judgment normal. Laboratory Laboratory Tests Test 07/03/17 20:30 07/04/17 05:10 Activated Partial Thromboplast Time 24.7 SEC White Blood Count 9.2 TH/MM3 Red Blood Count 5.05 MIL/MM3 Hemoglobin 15.3 GM/DL Hematocrit 44.1 % Mean Corpuscular Volume 87.3 FL Mean Corpuscular Hemoglobin 30.2 PG Mean Corpuscular Hemoglobin Concent 34.6 % Red Cell Distribution Width 13.3 % Platelet Count 226 TH/MM3 Mean Platelet Volume 7.3 FL Neutrophils (%) (Auto) 70.0 % Lymphocytes (%) (Auto) 19.9 % Monocytes (%) (Auto) 8.0 % Eosinophils (%) (Auto) 1.3 % Basophils (%) (Auto) 0.8 % Neutrophils # (Auto) 6.4 TH/MM3 Lymphocytes # (Auto) 1.8 TH/MM3 Monocytes # (Auto) 0.7 TH/MM3 Eosinophils # (Auto) 0.1 TH/MM3 Basophils # (Auto) 0.1 TH/MM3 CBC Comment DIFF FINAL Differential Comment Blood Urea Nitrogen 9 MG/DL Creatinine 0.87 MG/DL Random Glucose 114 MG/DL Calcium Level 8.8 MG/DL Sodium Level 139 MEQ/L Potassium Level 3.9 MEQ/L Chloride Level 106 MEQ/L Carbon Dioxide Level 26.2 MEQ/L Anion Gap 7 MEQ/L Estimat Glomerular Filtration Rate 90 ML/MIN Assessment and Plan Problem List: (1) CAD (coronary artery disease) ICD Codes: I25.10 - Atherosclerotic heart disease of [place] coronary artery without angina pectoris (2) NSTEMI (non-ST elevated myocardial infarction) ICD Codes: I21.4 - Non-ST elevation (NSTEMI) myocardial infarction (3) Tobacco abuse ICD Codes: Z72.0 - Tobacco use (4) Acute coronary syndrome ICD Codes: I24.9 - Acute ischemic heart disease, unspecified Status: Acute Assessment and Plan 1) NSTEMI/CAD s/p CONSTANCE to LAD ASA/Brilinta will call about Brilinta refills, if too expensive will call to change to Plavix Started on BB/BRENDA-I Previously on Pravastatin, will attempt Atorvastatin for as longer acting/ more powerful 2) EF 65-70% 3) Cardiovascularly stable to discharge home this afternoon 4) Follow up in the office with me in 2-4 weeks Avinash Ann DO Jul 04, 2017 11:57
[2017-07-04] MEDS ORDERED: ASPI81 PO (14:09)
[2017-07-04] MEDS ORDERED: LISI-519 PO (14:09)
[2017-07-04] MEDS ORDERED: METO25TA3 PO (14:09)
[2017-07-04] MEDS ORDERED: BRIL90TA PO (14:09)
--- NOTE | 2017-07-04 14:11 | HHI.DS ---
Discharge Summary Admission Date Jul 03, 2017 at 13:07 Discharge Date: Jul 04, 2017 Admitting Diagnosis Acute Coronary Syndrome, Elevated [place]. (1) NSTEMI (non-ST elevated myocardial infarction) ICD Code: I21.4 - Non-ST elevation (NSTEMI) myocardial infarction Diagnosis: Principal (2) CAD (coronary artery disease) ICD Code: I25.10 - Atherosclerotic heart disease of [place] coronary artery without angina pectoris Diagnosis: Principal (3) Acute coronary syndrome ICD Code: I24.9 - Acute ischemic heart disease, unspecified Diagnosis: Principal Status: Acute Procedures Heart Cath with Stenting Brief History - From Admission chest pain while sitting down this am was just drinking coffee pain is pressure like went ot right arm and right neck no nausea/ no vomiting/ no sweating called 911 EMS gave asa and nitro and pain lessened with that was given more asa and ntg in er and pain got better was eval by cardio denies other symptoms on ROS but in Dec had night sweats, URI, had to go through 2- 3 sets of towels for couple of nights, lasted about 1.5 weeks and - day started was given antibiotics and prednisone and got improved and mucinex CBC/BMP: 07/04/17 0510 07/04/17 0510 Significant Findings Laboratory Tests Test 07/03/17 11:20 07/03/17 20:30 07/04/17 05:10 Neutrophils (%) (Auto) 75.3 % (16.0-70.0) Random Glucose 121 MG/DL (74-106) 114 MG/DL (74-106) Albumin 3.3 GM/DL (3.4-5.0) Calcium Level 8.1 MG/DL (8.5-10.1) Alkaline Phosphatase 124 U/L (45-117) Chloride Level 108 MEQ/L (98-107) Troponin I 0.39 NG/ML (0.02-0.05) Hospital Course Mr. Romero is a 8-year-old male. He is admitted secondary to an STEMI. Cardiac catheter was performed and stent was placed. Patient has had resolution of his symptoms since this time. Monitoring has not revealed any disturbances in his electrolytes, renal function, or cardiac arrhythmias. This point he is determined to be medically stable for discharge to home. Cardiology has cleared the patient for discharge. Discharge home today. Pt Condition on Discharge: Stable Discharge Disposition: Discharge Home Discharge Time: <= 30 minutes Discharge Instructions DIET: Follow Instructions for: Heart Healthy Diet Activities you can perform: Regular-No Restrictions Follow up Referrals: Cardiology - 2 Weeks PCP Follow-up - 2 Weeks New Medications: Aspirin (Tgt Aspirin) 81 Mg Chw 81 MG PO DAILY for Blood Clot Prevention, #30 EA Lisinopril (Lisinopril) 5 Mg Tab 5 MG PO DAILY for Blood Pressure Management, #30 TAB Metoprolol Tartrate (Metoprolol Tartrate) 25 Mg Tab 12.5 MG PO BID for Blood Pressure Management, #30 TAB Ticagrelor (Brilinta) 90 Mg Tab 90 MG PO BID for Blood Clot Prevention, #60 TAB Continued Medications: Albuterol 18 GM Inh (Ventolin Hfa 18 GM Inh) 90 Mcg/Act Aer 1 PUFF INH Q4H PRN for SHORTNESS OF BREATH, #1 INHALER 0 Refills Escitalopram (Lexapro) 5 Mg Tab 5 MG PO DAILY, #30 TAB 0 Refills Pravastatin (Pravastatin) 10 Mg Tab 20 MG PO DAILY for Cholesterol Management, #30 TAB 0 Refills Umeclidinium Eugene Inh (Incruse Ellipta Inh) 0.0625 Mg/Act Inh 62.5 MCG INH DAILY for Treat COPD, #1 INHALER 0 Refills Andre Danielle MD Jul 04, 2017 14:11
--- NOTE | 2017-07-04 20:32 | EKG ---
Date Performed: 07/03/2017 Time Performed: 22:20:00 PTAGE: 62 years EKG: Sinus rhythm Leftward axis Borderline ECG Since the prior tracing, there has been no significant change PREVIOUS TRACING : 07/03/2017 10.27 DOCTOR: Santiago Kelly Interpretating Date/Time 07/04/2017 20:23:19
== END 2017-07-04 16:15 | disposition home or self-care (01) | DRG 247 ==
LOC: NEPC 10:09 → NEDA 13:07 → HCIS 15:18
PROVIDERS: ADMIT Hospitalist; ATTEND Hospitalist
PROC: 4A023N7 Measurement of Cardiac Sampling and Pressure, Left Heart, Percutaneous Approach (ICD-10-PCS; 2017-07-03)
PROC: B2111ZZ Fluoroscopy of Multiple Coronary Arteries using Low Osmolar Contrast (ICD-10-PCS; 2017-07-03)
PROC: 027034Z Dilation of Coronary Artery, One Artery with Drug-eluting Intraluminal Device, Percutaneous Approach (ICD-10-PCS; principal; 2017-07-03 14:45)
DX: I21.4 Non-ST elevation (NSTEMI) myocardial infarction (principal); F32.9 Major depressive disorder, single episode, unspecified; J44.9 Chronic obstructive pulmonary disease, unspecified; E11.9 Type 2 diabetes mellitus without complications; F41.9 Anxiety disorder, unspecified; I25.10 Atherosclerotic heart disease of native coronary artery without angina pectoris; F17.210 Nicotine dependence, cigarettes, uncomplicated; E78.5 Hyperlipidemia, unspecified; E04.1 Nontoxic single thyroid nodule; N40.0 Benign prostatic hyperplasia without lower urinary tract symptoms; M19.90 Unspecified osteoarthritis, unspecified site
CPT/HCPCS: 71045; 80048; 80053; 83735; 84484; 85002; 85025; 85610; 85730; 92928; 93005; 93306; 93458; 93571; 96374; 99152; 99153; C1725; C1769; C1874; C1887; C1893; J1644; J2250; J3010; Q9967

== ENCOUNTER 2017-09-24 15:29 | Observation (INO) | payer MEDICARE, OTHER ==
[~2017-09-24] VITALS: Ht 177.8 cm; Wt 68.0 kg
[~2017-09-24 15:29] MED LIST changes: -ACLI1AER2 INH; +ASPI81 PO; +BRIL90TA PO; +LEXA5TAB PO; +LISI-519 PO; +METO25TA3 PO; -NAPR500T2 PO; +UMEC1INH INH
[2017-09-24 15:32] VITALS: BP 106/55; PULSE 71; RESP 16; TEMP 98.3; O2SAT 97
[2017-09-24] MEDS ORDERED: PRAV40TA2 PO (15:45)
--- NOTE | 2017-09-24 16:00 | PD ---
HPI Chief Complaint: Fall Time Seen by Provider: 15:39 Travel History International Travel<30 days: No Contact w/Intl Traveler<30days: No Traveled to known affect area: No History of Present Illness HPI This is a 62-year-old male who was climbing a 6 foot ladder when he fell several hours ago. He is not sure how he landed but he "knocked the wind out of himself" and initially had trouble breathing. Now he reports some moderate severity neck pain on the right side as well as pain in his upper abdomen, constant, nonradiating, not changed with deep breathing. He did not hit his head. The patient takes Brilinta. PFSH Past Medical History Hx Anticoagulant Therapy: Yes (brilinta) Arthritis: Yes Blood Disorders: No Depression: Yes Cancer: No Cardiac Catheterization: Yes Cardiovascular Problems: No High Cholesterol: Yes COPD: Yes Diabetes: No Diminished Hearing: No Endocrine: No Genitourinary: Yes (BPH) Hepatitis: No Hiatal Hernia: No Immune Disorder: No Musculoskeletal: Yes (ARTHRITIS) Neurologic: No Psychiatric: Yes (ANXIETY/ DEPRESSION) Reproductive: No Respiratory: Yes (COPD ) Immunizations Current: Yes Thyroid Disease: No Ulcer: No ?: Not Past Surgical History Abdominal Surgery: Yes (ANDREW INGUINAL HERNIA REPAIR) AICD: No Body Medical Devices: CERVICAL HARDWARE Coronary Stent: Yes Genitourinary Surgery: Yes (VASECTOMY, URITHERAL SX) Joint Replacement: No Neurologic Surgery: Yes (CERVICAL FUSION) Pacemaker: No Tonsillectomy: Yes Other Surgery: Yes (NECK SURGERY) Social History Alcohol Use: Yes (SOCIALLY) Tobacco Use: No (former) Substance Use: No Allergies-Medications (Allergen,Severity, Reaction): Coded Allergies: bupropion (Unverified Allergy, Severe, AGITATION, 07/03/17) lovastatin (Unverified Allergy, Intermediate, Rash, 07/03/17) 10/21/15 DENIES ALLERGY Reported Meds & Prescriptions Reported Meds & Active Scripts Active Brilinta (Ticagrelor) 90 Mg Tab 90 Mg PO BID Metoprolol Tartrate 25 Mg Tab 12.5 Mg PO BID Tgt Aspirin (Aspirin) 81 Mg Chw 81 Mg PO DAILY Lisinopril 5 Mg Tab 5 Mg PO DAILY Reported Pravastatin 40 Mg Tab 40 Mg PO DAILY Lexapro (Escitalopram Oxalate) 5 Mg Tab 5 Mg PO DAILY Incruse Ellipta Inh (Umeclidinium [place] Inh) 0.0625 Mg/Act Inh 62.5 Mcg INH DAILY Ventolin Hfa 18 GM Inh (Albuterol Sulfate) 90 Mcg/Act Aer 1 Puff INH Q4H PRN Review of Systems Except as stated in HPI: all other systems reviewed are Neg Physical Exam Narrative GENERAL:Well appearing, no acute distress SKIN: Abrasions in the right popliteal fossa. HEAD: Atraumatic. Normocephalic. EYES: Pupils equal and round. No injection or drainage. ENT: Moist mucous membranes NECK: Tender to palpation in the mid cervical spine and right paracervical muscles. CARDIOVASCULAR: Regular rate and rhythm. No murmur appreciated. RESPIRATORY: Clear to auscultation. Breath sounds equal bilaterally. GASTROINTESTINAL: Abdomen soft, tender to palpation in the epigastrium with no rebound or guarding. MUSCULOSKELETAL: No obvious deformities. Full painless range of motion of the right knee. No effusion. NEUROLOGICAL: Awake and alert. No obvious cranial nerve deficits. Moving all extremities. PSYCHIATRIC: Appropriate mood and affect; insight and judgment normal. Data Data Last Documented VS Vital Signs Date Time Temp Pulse Resp B/P (MAP) Pulse Ox O2 Delivery O2 Flow Rate FiO2 09/24/17 15:32 98.3 71 16 106/55 (72) [address] Cerv Spine W/O Contrast (09/24/17 ) Ct Abd/Pel W Iv Contrast(Rout) (09/24/17 ) Basic Metabolic Panel (Bmp) (09/24/17 15:57) Cbc No Diff, Includes Plts (09/24/17 15:57) ^ Insert Iv (09/24/17 15:57) Chest, Single Ap (09/24/17 ) Iohexol 350 Inj (Omnipaque 350 Inj) (09/24/17 17:10) Admit Order (Ed Use Only) (09/24/17 17:44) Labs Laboratory Tests Test 09/24/17 16:12 White Blood Count 12.9 TH/MM3 Red Blood Count 4.66 MIL/MM3 Hemoglobin 14.1 GM/DL Hematocrit 41.6 % Mean Corpuscular Volume 89.4 FL Mean Corpuscular Hemoglobin 30.3 PG Mean Corpuscular Hemoglobin Concent 34.0 % Red Cell Distribution Width 12.8 % Platelet Count 246 TH/MM3 Mean Platelet Volume 7.6 FL Blood Urea Nitrogen 11 MG/DL Creatinine 0.80 MG/DL Random Glucose 105 MG/DL Calcium Level 9.0 MG/DL Sodium Level 140 MEQ/L Potassium Level 4.0 MEQ/L Chloride Level 109 MEQ/L Carbon Dioxide Level 27.9 MEQ/L Anion Gap 3 MEQ/L Estimat Glomerular Filtration Rate 99 ML/MIN MDM Medical Decision Making Medical Screen Exam Complete: Yes Emergency Medical Condition: Yes Interpretation(s) Chest x-ray: Small area of pulmonary contusion in the medial left lower lung CT abdomen pelvis: Ill-defined laceration of the left lobe of the liver Differential Diagnosis Liver laceration, splenic laceration, abdominal wall contusion, rib fracture, pneumothorax, hemothorax, cervical spine fracture Narrative Course This is a 62-year-old male who presents to the emergency department having fallen off a ladder. He is on Brilinta and aspirin. He has normal vital signs on arrival however he is on metoprolol. Hemoglobin and hematocrit are normal on arrival. CT demonstrates a grade 2 liver laceration with no extracapsular fluid. Patient also has a pulmonary contusion on chest x-ray. He denies any history of head injury and he did not lose consciousness and remembers the entire accident. Pt. is hemodynamically stable on my evaluation. I spoke to Dr. Goldsmith. Patient will be admitted for observation under the trauma service at the [facility]. Physician Communication Physician Communication Discussed with Dr. Goldsmith Diagnosis Primary Impression: Liver laceration, grade II, without open wound into cavity Qualified Codes: S36.114A - Minor laceration of liver, initial encounter Additional Impression: Pulmonary contusion Qualified Codes: S27.321A - Contusion of lung, unilateral, initial encounter Admitting Information Admitting Physician Requests: Observation Geri Jha MD September 24, 2017 16:00
[2017-09-24 16:23] LABS: HEMATOCRIT 41.6 % (39.0-51.0); HEMOGLOBIN 14.1 GM/DL (13.0-17.0); MEAN CELL VOLUME 89.4 FL (80.0-100.0); MEAN CORPUSCULAR HEMOGLOBIN 30.3 PG (27.0-34.0); MEAN PLATELET VOLUME 7.6 FL (7.0-11.0); PLATELET COUNT 246 TH/MM3 (150-450); RED BLOOD COUNT 4.66 MIL/MM3 (4.50-5.90); RED CELL DISTRIBUTION WIDTH 12.8 % (11.6-17.2); WHITE BLOOD COUNT 12.9 TH/MM3 (4.0-11.0)
[2017-09-24 16:32] LABS: BICARBONATE 27.9 MEQ/L (21.0-32.0)
[2017-09-24 16:36] LABS: CREATININE 0.8 MG/DL (0.60-1.30)
--- NOTE | 2017-09-24 16:47 | RADRPT ---
EXAM DATE/TIME: 09/24/2017 16:24 [facility] COMPARISON: CHEST SINGLE AP, July 03, 2017, 11:07. INDICATIONS : Lower chest pain. Patient fell off a ladder today. MEDICAL HISTORY : Chronic obstructive pulmonary disease. SURGICAL HISTORY : Inguinal hernia repair. Tonsillectomy.Cervical fusion; deviated septum ENCOUNTER: Initial ACUITY: 1 day PAIN SCORE: 4/10 LOCATION: Bilateral chest FINDINGS: There is an ill-defined opacity in the retrocardiac region medially which may represent contusion or infiltrate. No evidence pneumothorax. Biapical pleural calcification, stable from prior. The heart is normal in size. Both hemidiaphragms well delineated. The osseous structures are grossly intact. CONCLUSION: 1. Small area of infiltrate, contusion, or atelectasis in the medial left lower lung. 2. No evidence of pneumothorax. Valdemar Khan MD on September 24, 2017 at 16:44 Board Certified Radiologist. This report was verified electronically.
[2017-09-24] MEDS ORDERED: IOHEXOL 350 MG/ML 10 ML VIAL (for RAD DIAG) IVCONTRAST ONE (17:10)
--- NOTE | 2017-09-24 17:35 | RADRPT ---
EXAM DATE/TIME: 09/24/2017 17:04 [facility] COMPARISON: No previous studies available for comparison. INDICATIONS : Fell off of a six foot ladder. Right abdominal pain. IV CONTRAST: 95 cc Omnipaque 350 (iohexol) IV ORAL CONTRAST: No oral contrast ingested. RADIATION DOSE: 6.03 CTDIvol (mGy) MEDICAL HISTORY : Cardiovascular disease. Chronic obstructive pulmonary disease. Anticoagulant therapy. SURGICAL HISTORY : Umbilical hernia repair. ENCOUNTER: Initial ACUITY: 1 day PAIN SCALE: 7/10 LOCATION: Right abdomen TECHNIQUE: Volumetric scanning of the abdomen and pelvis was performed. Using automated exposure control and ad justment of the mA and/or kV according to patient size, radiation dose was kept as low as reasonably achievable to obtain optimal diagnostic quality images. DICOM format image data is available electro nically for review and comparison. FINDINGS: LOWER LUNGS: There is segmental interstitial prominence the medial lower left lung. No evidence of pleural effusi on. LIVER: Abnormal appearance of the lateral segment of the left lobe of the liver where there is a 4.2 cm area of heterogeneous density including some focal areas of pooling of contrast extending to the surface, but without discontinuity of the surface. No extrahepatic fluid seen. The right lobe is intact. N o calcified gallstones. SPLEEN: Normal size without lesion. PANCREAS: Within normal limits. KIDNEYS: Normal in size and shape. There is no mass, stone or hydronephrosis. 1.5 cm cyst upper pole. ADRENAL GLANDS: Within normal limits. VASCULAR: There is no aortic aneurysm. BOWEL/MESENTERY: No dilated loops of small or large bowel. No evidence of free fluid. ABDOMINAL WALL: Within normal limits. RETROPERITONEUM: There is no lymphadenopathy. BLADDER: No wall thickening or mass. REPRODUCTIVE: Within normal limits. INGUINAL: There is no lymphadenopathy or hernia. The evidence of prior left inguinal hernia repair. MUSCULOSKELETAL: No fracture seen. CONCLUSION: 1. Ill-defined laceration of the left lobe of the liver with some contrast pooling in the hepatic par enchyma, but no extracapsular fluid. The area of involvement measures 4.2 cm (AAST Grade II). 2. Segmental interstitial prominence medial left lower lung suggesting possible contusion. Valdemar Khan MD on September 24, 2017 at 17:20 Board Certified Radiologist. This report was verified electronically.
--- NOTE | 2017-09-24 17:38 | RADRPT ---
EXAM DATE/TIME: 09/24/2017 16:59 [facility] COMPARISON: No previous studies available for comparison. INDICATIONS : Fell off of a six foot ladder. Neck pain. RADIATION DOSE: 25.85 CTDIvol (mGy) MEDICAL HISTORY : Cardiovascular disease. Chronic obstructive pulmonary disease. Anticoagulant therapy. SURGICAL HISTORY : Fusion, cervical. ENCOUNTER: Initial ACUITY: 1 day PAIN SCALE: 8/10 LOCATION: Right neck TECHNIQUE: Volumetric scanning of the cervical spine was performed. Multiplanar reconstructions in the sagittal, coronal and oblique axial planes were performed. Using automated exposure control and adjustment o f the mA and/or kV according to patient size, radiation dose was kept as low as reasonably achievable to obtain optimal diagnostic quality images. DICOM format image data is available electronically f or review and comparison. FINDINGS: There is normal alignment of the vertebral bodies of the cervical spine and preservation of vertebral body height. Anterior cervical plate at C6 and C7 with orthotopic position of the interspace device . The atlantoaxial articulation is intact. The posterior elements are in normal alignment without e vidence of locked or perched facets. C2-C3: No fracture seen. The neural foramina are patent. C3-C4: No fracture seen. The neural foramina are patent. C4-C5: No fracture seen. The neural foramina are patent. C5-C6: No fracture seen. The neural foramina are patent. C6-C7: No fracture seen. The neural foramina are patent. C7-T1: No fracture seen. The neural foramina are patent. CONCLUSION: 1. No evidence of compression deformity or spondylolisthesis. 2. Intact ACF C5-C6. Valdemar Khan MD on September 24, 2017 at 17:33 Board Certified Radiologist. This report was verified electronically.
[2017-09-24 17:49] VITALS: BP 117/69; PULSE 67; RESP 15; O2SAT 99
[2017-09-24 18:20] VITALS: BP 113/65; PULSE 70; RESP 16; O2SAT 99
[2017-09-24 20:24] VITALS: BP 106/57; PULSE 64; RESP 16; O2SAT 97
[2017-09-24 22:00] VITALS: BP 106/52
[2017-09-24] MEDS ORDERED: SODIUM CHLOR 0.9% 1000 ML INJ 1,000 ML IV SCH (23:15)
[2017-09-25] VITALS: BP 116/60; PULSE 59; RESP 15; TEMP 97.9; O2SAT 95
[2017-09-25 04:00] VITALS: BP 108/55; PULSE 58; RESP 18; TEMP 97.8; O2SAT 95
[2017-09-25] MEDS ORDERED: ACETAMINOPHEN/HYDROcodone 325 MG/5 MG TAB PO PRN (05:30)
[2017-09-25] MEDS ORDERED: RESP: ALBUTEROL 2.5 MG/IPRATROPIUM 0.5 MG NEB (PRN) NEB (05:30)
[2017-09-25] MEDS ORDERED: ACETAMINOPHEN 325 MG TAB PO PRN (05:30)
[2017-09-25] MEDS ORDERED: SODIUM CHLORIDE 0.9% FLUSH 10 ML FLUSH IV FLUSH PRN (05:30)
[2017-09-25] MEDS ORDERED: ENALAPRILAT 1.25 MG/ML VIAL IV PUSH PRN (05:30)
[2017-09-25] MEDS ORDERED: ONDANSETRON HCL 4 MG/2 ML VIAL IV PUSH PRN (05:30)
--- NOTE | 2017-09-25 06:18 | RADRPT ---
EXAM DATE/TIME: 09/25/2017 05:42 [facility] COMPARISON: CHEST SINGLE AP, September 24, 2017, 16:24. INDICATIONS : Chest pain. MEDICAL HISTORY : Chronic obstructive pulmonary disease. SURGICAL HISTORY : Fusion, cervical. ENCOUNTER: Subsequent ACUITY: 2 days PAIN SCORE: 4/10 LOCATION: Left lower chest FINDINGS: A single view of the chest demonstrates a persistent small infiltrate or atelectasis in the left base . Heart size is normal. Degenerative spurring of the dorsal spine. Anterior fixation of lower cervica l spine. CONCLUSION: Persistent faint airspace disease just above the left hemidiaphragm medially. Sebastian Garcia MD on September 25, 2017 at 6:15 Board Certified Radiologist. This report was verified electronically.
[2017-09-25 08:00] VITALS: BP 106/59; PULSE 60; RESP 17; TEMP 97.8; O2SAT 96
[2017-09-25] MEDS: METOPROLOL TARTRATE 25 MG TAB PO SCH ×2 (09:00→22:34)
[2017-09-25] MEDS ORDERED: PRAVASTATIN SOD 40 MG TAB PO SCH ×2 (09:00→21:00)
[2017-09-25] MEDS: LISINOPRIL 5 MG TAB PO SCH (09:00)
[2017-09-25] MEDS ORDERED: UMECLIDINIUM BROMIDE 62.5 MCG INH SCH (09:00)
[2017-09-25] MEDS ORDERED: ESCITALOPRAM OXALATE 10 MG TAB PO SCH ×2 (09:00→21:00)
[2017-09-25] MEDS: BACITRACIN TOP OINT 15 GM TUBE TOP SCH ×2 (09:00→21:00)
[2017-09-25] MEDS: DOCUSATE SODIUM 100 MG CAP PO SCH ×2 (09:00→21:00)
[2017-09-25 11:09] LABS: HEMATOCRIT 39.9 % (39.0-51.0); HEMOGLOBIN 13.8 GM/DL (13.0-17.0)
--- NOTE | 2017-09-25 11:15 | HHI.PR ---
Subjective Subjective Notes Pain controlled Ambulating in room Eating well Objective Vitals/I&O Vital Signs Date Time Temp Pulse Resp B/P (MAP) Pulse Ox O2 Delivery O2 Flow Rate FiO2 09/25/17 08:00 97.8 60 17 106/59 (75) 96 09/24/17 20:24 Room Air Labs Laboratory Tests Test 09/24/17 16:12 09/25/17 10:47 White Blood Count 12.9 Red Blood Count 4.66 Hemoglobin 14.1 13.8 Hematocrit 41.6 39.9 Mean Corpuscular Volume 89.4 Mean Corpuscular Hemoglobin 30.3 Mean Corpuscular Hemoglobin Concent 34.0 Red Cell Distribution Width 12.8 Platelet Count 246 Mean Platelet Volume 7.6 Blood Urea Nitrogen 11 Creatinine 0.80 Random Glucose 105 Calcium Level 9.0 Sodium Level 140 Potassium Level 4.0 Chloride Level 109 Carbon Dioxide Level 27.9 Anion Gap 3 Estimat Glomerular Filtration Rate 99 Radiology Last Impressions Chest X-Ray 09/25/17 0525 Signed Impressions: Service Date/Time: Monday, September 25, 2017 05:42 - CONCLUSION: Persistent faint airspace disease just above the left hemidiaphragm medially. Sebastian Garcia MD Cervical Spine CT 09/24/17 0000 Signed Impressions: Service Date/Time: Sunday, September 24, 2017 16:59 - CONCLUSION: 1. No evidence of compression deformity or spondylolisthesis. 2. Intact ACF C5-C6. Valdemar Khan MD Abdomen/Pelvis CT 09/24/17 0000 Signed Impressions: Service Date/Time: Sunday, September 24, 2017 17:04 - CONCLUSION: 1. Ill-defined laceration of the left lobe of the liver with some contrast pooling in the hepatic parenchyma, but no extracapsular fluid. The area of involvement measures 4.2 cm (AAST Grade II). 2. Segmental interstitial prominence medial left lower lung suggesting possible contusion. Valdemar Khan MD Narrative Exam GENERAL: 62-year-old well-nourished, well developed male standing at bedside. SKIN: Warm and dry. HEAD: Normocephalic. EYES: Pupils equal and round. No scleral icterus. ENT: No nasal bleeding or discharge. Mucous membranes pink and moist. NECK: Trachea midline. No JVD. CARDIOVASCULAR: Regular rate and rhythm. RESPIRATORY: No accessory muscle use. Lungs clear to auscultation. Breath sounds equal bilaterally. GASTROINTESTINAL: Abdomen soft, tender to palpation in RUQ, nondistended. + BS. MUSCULOSKELETAL: Extremities without cyanosis, or edema. MAEW, + perfused NEUROLOGICAL: Awake and alert. Normal speech. A/P Assessment and Plan [place]: Fell off a ladder from approximately 6ft. No LOC. On Brilinta and ASA. INJURIES: LEFT lung contusion Grade II liver lac PMHx: Arthritis, depression, COPD, Cardiac stent 06/2017, HLD, anxiety, BPH, cervical fusion, HTN LEFT lung contusion Supportive care Pulmonary toileting CXR shows left lung contusion Pain control OOB- PT ordered Grade II liver lac Supportive care Monitor H&H Hold Brilinta and ASA 1 week Pain control Bowel regimen Home meds resumed Plan of care discussed with patient at bedside. Collaborating Trauma surgeon agrees with plan. Case management consulted to assist with discharge planning. Plan to discharge patient home tomorrow if hemoglobin remains stable. Attending Statement The exam, history, and the medical decision-making described in the above note were completed with the assistance of the mid-level provider. I reviewed and agree with the findings presented. I attest that I had a [id number] encounter with the patient on the same day, and personally performed and documented my assessment and findings in the medical record. Clark Ferrer September 25, 2017 11:15 Randall Hernandez MD September 25, 2017 11:37
[2017-09-25 11:35] LABS: ALBUMIN 3.4 GM/DL (3.4-5.0); AST (GOT) 23 U/L (15-37); BICARBONATE 31.7 MEQ/L (21.0-32.0); BLOOD UREA NITROGEN 10 MG/DL (7-18); CALCIUM 8.7 MG/DL (8.5-10.1); CHLORIDE 105 MEQ/L (98-107); CREATININE 0.96 MG/DL (0.60-1.30); GLOMERULAR FILTRATION RATE 80 ML/MIN (>89); SODIUM (NA) 142 MEQ/L (136-145)
[2017-09-25 11:44] LABS: ALKALINE PHOSPHATASE 120 U/L (45-117); ALT (GPT) 30 U/L (12-78); GLUCOSE,RANDOM 144 MG/DL (74-106); TOTAL BILIRUBIN ADULT 0.7 MG/DL (0.2-1.0); TOTAL PROTEIN 6.7 GM/DL (6.4-8.2)
[2017-09-25 12:00] VITALS: BP 99/55; PULSE 63; RESP 17; TEMP 97.5; O2SAT 96
[2017-09-25 16:00] VITALS: BP 113/56; PULSE 66; RESP 17; TEMP 97.6; O2SAT 97
[2017-09-25 20:00] VITALS: BP 133/65; PULSE 68; RESP 17; TEMP 98.2; O2SAT 96
[2017-09-26] VITALS: BP 102/59; PULSE 59; RESP 17; TEMP 98.1; O2SAT 97
[2017-09-26 01:24] VITALS: PULSE 52
[2017-09-26 04:00] VITALS: BP 110/59; PULSE 59; RESP 17; TEMP 98.1; O2SAT 97
[2017-09-26 04:13] LABS: HEMATOCRIT 39.9 % (39.0-51.0); HEMOGLOBIN 14.2 GM/DL (13.0-17.0)
[2017-09-26] MEDS ORDERED: TYLE325T PO (06:50)
[2017-09-26 08:00] VITALS: BP 112/60; PULSE 55; RESP 18; TEMP 97.8; O2SAT 97
[2017-09-26] MEDS: BACITRACIN TOP OINT 15 GM TUBE TOP SCH (09:00)
[2017-09-26] MEDS: DOCUSATE SODIUM 100 MG CAP PO SCH (09:00)
[2017-09-26] MEDS: LISINOPRIL 5 MG TAB PO SCH (09:00)
[2017-09-26] MEDS: METOPROLOL TARTRATE 25 MG TAB PO SCH (09:00)
--- NOTE | 2017-09-26 11:45 | HHI.DS ---
Discharge Summary Admission Date September 24, 2017 at 17:45 Discharge Date: September 26, 2017 Admitting Diagnosis liver laceration, pulmonary contusion (1) Fall, initial encounter ICD Codes: W19.XXXA - Unspecified fall, initial encounter (2) Liver laceration, grade II, without open wound into cavity ICD Codes: S36.114A - Minor laceration of liver, initial encounter Status: Acute (3) Pulmonary contusion ICD Codes: S27.329A - Contusion of lung, unspecified, initial encounter Status: Acute Brief History S/P Fall CBC/BMP: 09/26/17 0328 09/25/17 1047 Significant Findings Laboratory Tests Test 09/24/17 16:12 09/25/17 10:47 09/26/17 03:28 White Blood Count 12.9 TH/MM3 (4.0-11.0) Chloride Level 109 MEQ/L (98-107) Anion Gap 3 MEQ/L (5-15) Random Glucose 144 MG/DL (74-106) Alkaline Phosphatase 120 U/L (45-117) Estimat Glomerular Filtration Rate 80 ML/MIN (>89) Imaging Last Impressions Chest X-Ray 09/25/17 0525 Signed Impressions: Service Date/Time: Monday, September 25, 2017 05:42 - CONCLUSION: Persistent faint airspace disease just above the left hemidiaphragm medially. Sebastian Garcia MD Cervical Spine CT 09/24/17 0000 Signed Impressions: Service Date/Time: Sunday, September 24, 2017 16:59 - CONCLUSION: 1. No evidence of compression deformity or spondylolisthesis. 2. Intact ACF C5-C6. Valdemar Khan MD Abdomen/Pelvis CT 09/24/17 0000 Signed Impressions: Service Date/Time: Sunday, September 24, 2017 17:04 - CONCLUSION: 1. Ill-defined laceration of the left lobe of the liver with some contrast pooling in the hepatic parenchyma, but no extracapsular fluid. The area of involvement measures 4.2 cm (AAST Grade II). 2. Segmental interstitial prominence medial left lower lung suggesting possible contusion. Valdemar Khan MD PE at Discharge GENERAL: 62-year-old well-nourished, well developed male OOB in chair. SKIN: Warm and dry. HEAD: Normocephalic. EYES: Pupils equal and round. No scleral icterus. ENT: No nasal bleeding or discharge. Mucous membranes pink and moist. NECK: Trachea midline. No JVD. CARDIOVASCULAR: Regular rate and rhythm. RESPIRATORY: No accessory muscle use. Lungs clear to auscultation. Breath sounds equal bilaterally. GASTROINTESTINAL: Abdomen soft, nontender, nondistended. + BS. MUSCULOSKELETAL: Extremities without cyanosis, or edema. MAEW, + perfused NEUROLOGICAL: Awake and alert. Normal speech. Hospital Course [place]: Fell off a ladder from approximately 6ft. No LOC. On Brilinta and ASA. INJURIES: LEFT lung contusion Grade II liver lac PMHx: Arthritis, depression, COPD, Cardiac stent 06/2017, HLD, anxiety, BPH, cervical fusion, HTN LEFT lung contusion Supportive care Pulmonary toileting- Continue IS use at home CXR shows left lung contusion Pain control OOB- PT ordered Grade II liver lac Supportive care H&H stable Hold Brilinta and ASA 1 week No strenuous activities for 1 month F/U with PCP in 1 week Plan of care discussed with patient and RN at bedside. Collaborating Trauma surgeon agrees with plan. Case management consulted to assist with discharge planning. Patient is clear from trauma surgery standpoint to safely discharge home. Pt Condition on Discharge: Stable Discharge Disposition: Discharge Home Discharge Instructions DIET: Follow Instructions for: As Tolerated, No Restrictions Activities you can perform: Full Weight Bearing Activities to Avoid: Concussion Sports, Contact Sports, Strenuous Activity Attending Statement The exam, history, and the medical decision-making described in the above note were completed with the assistance of the mid-level provider. I reviewed and agree with the findings presented. I attest that I had a [id number] encounter with the patient on the same day, and personally performed and documented my assessment and findings in the medical record. Clark Ferrer September 26, 2017 11:45 Randall Hernandez MD September 26, 2017 20:40
== END 2017-09-26 12:29 | disposition home or self-care (01) ==
LOC: PHED 15:29 → PHEDA 17:45 → INTOOBSV 17:45 → N07B 22:35
PROVIDERS: ADMIT Surgery; ATTEND Surgery
DX: S36.115A Moderate laceration of liver, initial encounter (principal); S27.321A Contusion of lung, unilateral, initial encounter; I10 Essential (primary) hypertension; E78.00 Pure hypercholesterolemia, unspecified; J44.9 Chronic obstructive pulmonary disease, unspecified; F32.9 Major depressive disorder, single episode, unspecified; F41.9 Anxiety disorder, unspecified; M19.90 Unspecified osteoarthritis, unspecified site; N40.0 Benign prostatic hyperplasia without lower urinary tract symptoms; Z95.5 Presence of coronary angioplasty implant and graft; Z98.1 Arthrodesis status; Z79.899 Other long term (current) drug therapy; Z79.82 Long term (current) use of aspirin; Z87.891 Personal history of nicotine dependence; W11.XXXA Fall on and from ladder, initial encounter
CPT/HCPCS: 71045; 72125; 74177; 80048; 80053; 85014; 85018; 85027; 96360; 96361; 97163; 99285; G0378; G8987; G8988; J7030; Q9967